=== PATIENT | female | born 1985 | race Caucasian/White ===

== ENCOUNTER 2023-02-16 09:55 | Outpatient (AMB) | payer OTHER, SELFPAY ==
[2023-02-16 10:14] VITALS: BP 122/64; PULSE 78; RESP 12; TEMP 36.3; O2SAT 99; BMI 27.8
--- NOTE | 2023-02-16 10:14 | MHC.PC.OV ---
Vital Signs 02/16/23 10:14 Height 4 ft 10 in Weight 133 lb 2 oz BMI 27.8 BP 122/64 Blood Pressure Location Rt brachial Position Sitting Respiration 12 Pulse 78 Pulse Source Pulse Oximeter Temp 97.3 F Temp Source Temporal Artery Scan Pulse Oximetry (%) 99 Oxygen Delivery Method Room Air Intake Visit Reasons: npv-requesting ph Intake Note: Patient states that she has been experiencing kidney pain and for her she states that that may be early signs of . Patient would also like a referral to OBGYN as well as full panel done for labs. Instrument Installer Required: No Accompanied by: Spouse Allergies No Known Allergies Allergy (Verified 02/16/23 10:20) Tobacco use date assessed: 02/16/23 Dental Screening Dental Screen Date: 02/16/23 Did you have a dental visit in the last 12 months?: Yes Did you have a dental problem in the last 6 months where you did not have access to dental care?: No Was dental information given to patient?: Patient has dentist HPI npv-requesting ph HPI Details New patient Prior PCP:?None Last office visit/CPE: 2 years Acute issue(s): Wanting to get - never before PMHx: Hx of Kidney Stones, Gastritis, Low Vitamin D SurgHx: Basketr removal of kidney stone FHx: Mom: HTN, HLD. Dad: HTN. SocHx: Nonsmoker. EtOH occasional 1-2 dr. No drugs. [facility] Medical History (Updated 02/16/23 @ 11:36 by Michael Solano) Kidney stones History of blood clots High cholesterol High blood pressure Surgical History (Updated 02/16/23 @ 10:25 by Florina Coats MA) No pertinent past surgical history Family History (Updated 02/16/23 @ 10:27 by Florina Caots MA) Mother High blood pressure High cholesterol Thyroid disorder Father High blood pressure Maternal Grandmother High blood pressure Paternal Grandfather Diabetes Social History Housing: House Patient Tobacco Use Status: Never used Tobacco e-Cigarette/Vaping Use: Never Used service: No Cognitive needs: No Hearing needs: No Vision needs: Yes Questionnaire PHQ-9 Over the last 2 weeks, how often have you been bothered by any of the following problems? 1. Little interest or pleasure in doing things: not at all 2. Feeling down, depressed, or hopeless: not at all 3. Trouble falling or staying asleep, or sleeping too much: not at all 4. Feeling tired or having little energy: several days 5. Poor appetite or overeating: not at all 6. Feeling bad about yourself - or that you are a failure or have let yourself or your family down: not at all 7. Trouble concentrating on things, such as reading the newspaper or watching television: not at all 8. Moving or speaking so slowly that other people could have noticed. Or the opposite - being so fidgety or restless that you have been moving around a lot more than usual: not at all 9. Thoughts that you would be better off or of hurting yourself in some way: not at all Total score: 1 Depression Screening Interpretation: Negative Source: Developed by Drs. Dwaine Eid, Clemencia Bravo, Jaycob Lockett and colleagues, with an educational serina from [employer]. Thrive Questionnaire Date Thrive assessed: 02/16/23 I am a: Patient What is your living situation today?: I have a steady place to live Within the past 12 months, did the food you bought not last and you didn't have the money to get more?: Never true Within the past 12 months, did you worry whether your food would run out before you got money to buy more?: Never true Do you have trouble paying for medicines?: Yes Do you have trouble getting transportation to medical appointments?: No Do you have trouble paying your heating and electricity bill?: Yes Do you have trouble taking care of your child, family member or friend?: No Do you have trouble with day-to-day activities such as bathing, preparing meals, shopping, managing finances, etc.?: No Are you currently unemployed and looking for a job?: Yes Are you interested in more education?: Yes Please select the resources that you would like help with: Paying for medicine, Utilities, Job search/training and Education Currently or been in a relationship where the following occur: no concerns reported AUDIT C Alcohol Use Questionnaire (AUDIT-C) 1. How often do you have a drink containing alcohol?: Monthly or less 2. How many drinks containing alcohol do you have on a typical day when you are drinking?: 1 or 2 3. How often do you have six or more drinks on one occasion?: Never Total Score: 1 STONE-7 AMB Questionnaire STONE-7 Date STONE - 7 assessed: 02/16/23 Feeling nervous, anxious, or on edge: 0 = Not at all Not being able to stop or control worryin = Not at all Worrying too much about different things: 0 = Not at all Trouble relaxin = Not at all Being so restless that it is hard to sit still: 0 = Not at all Becoming easily annoyed or irritable: 0 = Not at all Feeling afraid as if something awful might happen: 0 = Not at all Total STONE-7 score (0-4 normal; 5-9 mild; 10-14 moderate; 15-21 severe): 0 Source: Developed by Drs. Dwaine Eid, Clemencia Bravo, Jaycob Lockett and colleagues, with an educational serina from [employer]. Physical exam (Primary Care) Vital Signs: Last Vital Signs Temp 97.3 F 02/16/23 10:14 Pulse 78 02/16/23 10:14 Resp 12 02/16/23 10:14 BP 122/64 02/16/23 10:14 Pulse Ox 99 02/16/23 10:14 Oxygen Delivery Method Room Air 02/16/23 10:14 BMI result Body Mass Index 27.8 Tobacco/Smoking Status: Tobacco use Status Tobacco use date assessed 02/16/23 02/16/23 10:30 Patient Tobacco Use Status Never used Tobacco 02/16/23 10:16 e-Cigarette/Vaping Use Never Used 02/16/23 10:30 PHQ-9: PHQ-9 Score PHQ-9: Total score 1 02/16/23 11:19 Depression Screening Interpretation: Negative Thrive Assessment: Date of Thrive Assessment Date Thrive assessed 02/16/23 02/16/23 10:30 Currently or been in a relationship where the following occur: no concerns reported Assessment and Plan Assessment & Plan (1) History of kidney stones: Code(s): Z87.442 - Personal history of urinary calculi Plan: Check urine dip and will send for urinalysis Hydrate well Will follow-up (2) Family planning: Code(s): Z30.09 - Encounter for other general counseling and advice on contraception Plan: Start vitamin as patient is trying to get . Check urine hCG today She notes some abnormalities with hormones in the past so checking labs Referred to OBGYN (3) Gastritis: Code(s): K29.70 - Gastritis, unspecified, without bleeding Plan: Avoid trigger foods which were reviewed with patient Avoid eating to close to bedtime or overeating Will follow-up (4) Strabismus: Code(s): H50.9 - Unspecified strabismus Plan: Right eye weakness. Patient denies vision loss Wears glasses Stable (5) History of blood clots: Code(s): Z86.718 - Personal history of other venous thrombosis and embolism Plan: Mildly poor historian. Patient recounts having an technologist development in [facility] state that she has a blood clot in her neck. She says this testing was done for pain in her neck. No treatment was provided such as anticoagulation. Unclear history. Check D-dimer today. If positive would refer to ED and or get ultrasound. I expect testing will likely be negative as she has no carotid bruit or dizziness Does have some neck pain and would check x-ray or other imaging. (6) Laboratory exam ordered as part of routine general medical examination: Code(s): Z00.00 - Encounter for general adult medical examination without abnormal findings Plan: Check labs Orders: Orders AMB HCG Urine Test Today Z30. - Encounter for other general counseling and advice on contraception Urine Dipstick Today M54.9 - Dorsalgia, unspecified Complete Blood Count Auto Diff Today Z00.00 - Encounter for general adult medical examination without abnormal findings Lipid Panel Today Z00.00 - Encounter for general adult medical examination without abnormal findings UA and rflx microscopic Today Z00.00 - Encounter for general adult medical examination without abnormal findings Follicle Stimulating Hormone Today Z30.09 - Encounter for other general counseling and advice on contraception Progesterone Today Z30.09 - Encounter for other general counseling and advice on contraception Comprehensive [place]. Panel Fast Today Z00.00 - Encounter for general adult medical examination without abnormal findings Microalbumin, Random (w Creat) Today I10 - Essential (primary) hypertension TSH reflex Free T4 Today Z00.00 - Encounter for general adult medical examination without abnormal findings Vitamin D 25-OH Total Today E55.9 - Vitamin D deficiency, unspecified D Dimer High Sensitivity Today Z86.718 - Personal history of other venous thrombosis and embolism Lutenizing Hormone Today Z30 - Encounter for other general counseling and advice on contraception Estrogen Today Z - Encounter for other general counseling and advice on contraception Referrals SENIOR ADMINISTRATOR SUPPORT Referral Z. - Encounter for other general counseling and advice on contraception Medications: New PNV #[id number] 30 mg iron-10 mg iron-1 mg 1 cap PO DAILY 90 caps 3RF 90 days Coding Level of Care Code New Pt Level 4 (96691) Diagnoses History of kidney stones Z87.442 Family planning Z30. Gastritis K29.70 Strabismus H50.9 History of blood clots Z86.718 Laboratory exam ordered as part of routine general medical examination Z00.00
== END 2023-02-16 11:56 | disposition home or self-care (01) ==
PROVIDERS: PCP Family Medicine; Visit Provider Family Medicine
DX: K29.70 Gastritis, unspecified, without bleeding (principal); Z87.442 Personal history of urinary calculi; Z32.02 Encounter for pregnancy test, result negative; Z86.718 Personal history of other venous thrombosis and embolism; Z30.09 Encounter for other general counseling and advice on contraception; H50.9 Unspecified strabismus
CPT/HCPCS: 81025; 99204

== ENCOUNTER 2023-02-16 12:15 | Outpatient (REF) | payer OTHER, SELFPAY ==
[2023-02-16 14:51] LABS: Appearance Urine Clear; Color Urine Dark Yellow; Glucose Urine UA Negative (Negative); Leukocyte Esterase Urine Trace (Negative); Nitrite Urine Negative (Negative); Specific Gravity - Urine 1.015 (1.005-1.025); UMIC TRIGGER UA YES; Urine Blood Negative (Negative); Urine Ketones Negative (Negative); Urine Protein Negative (Neg-Trace)
[2023-02-16 14:54] LABS: Bacteria Urine Trace (None Seen); Hyaline Casts Urine 0-2 /LPF (0-2); RBC Urine 0-2 /HPF (0-2); Squamous Epithelial Cell Urine 0-2 /HPF (0-2); WBC Urine 0-5 /HPF (0-5)
== END 2023-02-16 12:16 | disposition home or self-care (01) ==
LOC: HO.LAB 12:15
PROVIDERS: Visit Provider Family Medicine
DX: M54.9 Dorsalgia, unspecified (principal)
CPT/HCPCS: 81001

== ENCOUNTER 2023-03-15 10:09 | Outpatient (REF) | payer OTHER, SELFPAY ==
[2023-03-16 23:33] LABS: Follicle Stimulating Hormone 1.9 mIU/mL; Lutenizing Hormone 1.3 mIU/mL
[2023-03-19 22:24] LABS: Estrogen 252 pg/mL
[2023-03-22 19:48] LABS: Progesterone 21.2 ng/mL
== END 2023-03-15 10:10 | disposition home or self-care (01) ==
LOC: HO.WFDLDS 10:09
PROVIDERS: Visit Provider Family Medicine
DX: Z00.00 Encounter for general adult medical examination without abnormal findings (principal); Z30.09 Encounter for other general counseling and advice on contraception; Z86.718 Personal history of other venous thrombosis and embolism; E55.9 Vitamin D deficiency, unspecified; I10 Essential (primary) hypertension
CPT/HCPCS: 36415; 80053; 80061; 81003; 82043; 82306; 82570; 82672; 83001; 83002; 84144; 84443; 85025; 85379

== ENCOUNTER 2023-03-18 13:53 | Outpatient (AMB) | payer OTHER, SELFPAY ==
[2023-03-18 14:02] VITALS: BP 126/82; PULSE 80; O2SAT 99; BMI 27.9
--- NOTE | 2023-03-18 14:02 | A.OFFPC_ITS ---
Vital Signs 03/18/23 14:02 Height 4 ft 10 in Weight 133 lb 6 oz BMI 27.9 BP 126/82 Blood Pressure Location Lt brachial Position Sitting Pulse 80 Pulse Source Pulse Oximeter Pulse Oximetry (%) 99 Oxygen Delivery Method Room Air Intake Visit Reasons: CPE with f/u labs and health maint. Intake Note: Patient is here for her physical today and is compalining of kidney pain, and pain in her groin area for about a week. Accompanied by: Spouse Allergies No Known Allergies Allergy (Verified 03/18/23 14:06) Tobacco use date assessed: 03/18/23 HPI CPE with f/u labs and health maint. HPI Details 37 y/o female presents for a CPE with f/ u labs and health maintenance. Labs were drawn 03/15/23. Reviewed labs with pt. TC 296. LDL 217. Triglycerides 86. HDL 62. Pt reports some dizziness since last office visit. She denies dizziness when turning her head or standing up too quickly. She notes dizziness when she walks sometimes. She denies any chest pain or shortness of breath. [facility] Medical History (Updated 03/18/23 @ 15:07 by Michael Solano) Kidney stones History of blood clots High cholesterol High blood pressure Surgical History (Updated 02/16/23 @ 10:25 by Florina Coats MA) No pertinent past surgical history Family History (Updated 02/16/23 @ 10:27 by Florina Coats MA) Mother High blood pressure High cholesterol Thyroid disorder Father High blood pressure Maternal Grandmother High blood pressure Paternal Grandfather Diabetes Social History Housing: House Patient Tobacco Use Status: Never used Tobacco e-Cigarette/Vaping Use: Never Used service: No Current occupational status: other Cognitive needs: No Hearing needs: No Vision needs: Yes Questionnaire Thrive Questionnaire Date Thrive assessed: 02/16/23 STONE-7 AMB Questionnaire STONE-7 Date STONE - 7 assessed: 02/16/23 Source: Developed by Drs. Dwaine Eid, Clemencia Bravo, Jaycob Lockett and colleagues, with an educational serina from [employer]. Review of Systems Const Denies chills, Denies fatigue, Denies fever(s), Denies headache(s) and Denies weakness Eyes Denies change in vision ENT Denies dizziness, Denies headache(s), Denies hearing loss, Denies nasal congestion, Denies sinus pain, Denies sinus pressure and Denies sore throat Card Denies chest pain, Denies lightheadedness, Denies dyspnea and Denies other (palpitations) Resp Denies cough, Denies dyspnea and Denies wheezing GI Denies abdominal pain, Denies melena, Denies hematochezia, Denies change in bowel habits, Denies dyspepsia and Denies nausea Denies hematuria and Denies dysuria Musc Denies abnormal gait, Denies myalgias, Denies arthralgias, Denies numbness and Denies tingling Skin/Breast Denies rash, Denies unusual bruising and Denies wounds Neuro Denies abnormal gait, Denies dizziness, Denies headache(s), Denies memory loss, Denies numbness, Denies Sensory deficit (Neuro), Denies tingling and Denies weakness Psych Denies anxiety, Denies depression and Denies memory loss Endo Denies cold intolerance, Denies fatigue, Denies heat intolerance, Denies polydipsia and Denies polyuria Chidi/Lymph Denies easy bleeding and Denies easy bruising Aller/Immun Denies wheezing Physical exam (Primary Care) Vital Signs: Last Vital Signs Pulse 80 03/18/23 14:02 BP 126/82 03/18/23 14:02 Pulse Ox 99 03/18/23 14:02 Oxygen Delivery Method Room Air 03/18/23 14:02 BMI result Body Mass Index 27.9 Tobacco/Smoking Status: Tobacco use Status Tobacco use date assessed 03/18/23 03/18/23 14:08 Patient Tobacco Use Status Never used Tobacco 03/18/23 14:08 e-Cigarette/Vaping Use Never Used 03/18/23 14:08 Thrive Assessment: Date of Thrive Assessment Date Thrive assessed 02/16/23 03/18/23 14:08 Const General: no acute distress, well developed, alert and awake Nutritional Appearance: well nourished Orientation/consciousness: patient oriented x3 HENMT Head: Yes normocephalic and Yes atraumatic Ears: hearing grossly normal bilaterally and TM's normal bilaterally General nose exam: Normal external nose present and Normal nares present Mouth: Normal oral and palatal mucosa present and moist mucous membranes Teeth and gingiva: dentition normal Throat: Yes posterior oropharynx normal Eyes General: appearance normal, both eyes and all related structures Pupils: Equal, round and reactive pupils present and Pupil accommodation reflex normal EOM: EOMs intact bilaterally Neck Neck: Yes normal visual inspection, Yes no lymphadenopathy and Yes trachea midline Thyroid: Thyroid normal Carotids: no bruits Lymphatic: no lymphadenopathy noted Chest Chest palpation & inspection: normal inspection of the chest Resp Effort & Inspection: normal respiratory effort Auscultation: clear to auscultation bilaterally Cardio Rate: regular rate Rhythm: regular rhythm Heart sounds: S1 normal heart sound present, S2 normal heart sound present, no gallops, no murmurs and no rubs Bruits: no abdominal aortic bruits and no carotid bruits GI Palpation (GI): No Abdominal aortic bruit present, Soft to palpation, nontender, No hepatosplenomegaly present and No Rebound tenderness present Auscultation: normal bowel sounds General: Yes no CVA tenderness Back/Spine/Pelvis Back: no CVA tenderness Cervical Spine: cervical ROM normal and No Cervical spine tenderness Thoracic/Lumbar Spine: thoraco-lumbar ROM normal, No pain with thoraco-lumbar ROM, No thoracic spinal tenderness and No lumbar spinal tenderness Skin Lesions: no lesions Rashes: no rashes Trauma: no lacerations or abrasions Wounds: no wounds Nails: normal Neuro General: patient oriented x3 Cranial nerves: Yes Equal, round and reactive pupils present Cognition (Neuro): normal cognition Gait exam (Neuro): Normal gait present Motor exam (neuro): 5/5 motor strength present throughout Sensory Exam: No Sensory deficit (Neuro) Deep tendon reflexes (DTR's): Right patellar reflex intensity grade: 2+ and Left patellar reflex intensity grade: 2+ Extrem General: Yes normal to inspection and No edema Psych Appearance: grossly normal Affect: normal affect Attitude: cooperative Thought process: Normal thought process present Assessment and Plan Assessment & Plan (1) Adult general medical exam: Code(s): Z00.00 - Encounter for general adult medical examination without abnormal findings Plan: 37-year-old?female?presents?for?complete?physical?exam (2) Hypercholesterolemia: Code(s): E78.00 - Pure hypercholesterolemia, unspecified Plan: Significantly?high?LDL.??Also?has?good?HDL?though?not?likely?fully?protective. Patient?is?trying?to?get? so?would?like?to?avoid?using?statin?medication Will?refer?to?Cardiology?to?discuss?risk?as?she?also?notes?history?of?blood?clot s?though?this?is?not?well?established; patient?is?s omewhat?a?poor?historian?on?this?point. Referred?to?cardiology Encouraged?patient?to?work?on?a?diet?low?in?saturated?fats?and?cholesterol?and?t o?exercise?regularly. Will?recheck?in?3?months (3) History of blood clots: Code(s): Z86.718 - Personal history of other venous thrombosis and embolism Plan: Patient?says?she?was?told?she?has?a?blood?clot?in?country?of?origin?but?she?is?u nclear?on?this?point. She?had?been?concerned?about?current?blood?clots?and?D-dimer?was?negative. Reassured?patient?regarding?any?current?thromboses (4) Screening for cervical cancer: Code(s): Z12.4 - Encounter for screening for malignant neoplasm of cervix Plan: She?can?follow-up?with?her?OBGYN (5) Family planning: Code(s): Z30.09 - Encounter for other general counseling and advice on contraception Plan: Had?referred?her?to?OBGYN?for?family?planning?as?she?is?trying?to?get?. Gave?her?phone?number?for?OBGYN?and?she?is?already?referred (6) Dizziness: Code(s): R42 - Dizziness and giddiness Plan: Dizziness?with?head?movement. Likely?mild?vertigo?times?2?episodes No?chest?pain,?shortness?of?breath, ,?nausea?or?diaphoresis. Hydrate?well If?symptoms?recur,?would?refer?her?to?vestibular?rehab Orders: Orders Lipid Panel Today E78.00 - Pure hypercholesterolemia, unspecified, Z00.00 - Encounter for general adult medical examination without abnormal findings Comprehensive [place]. Panel Fast Today E78.00 - Pure hypercholesterolemia, unspecified, Z00.00 - Encounter for general adult medical examination without abnormal findings Referrals Cardiology Referral E78.00 - Pure hypercholesterolemia, unspecified, Z30.09 - Encounter for other general counseling and advice on contraception, Z86.718 - Personal history of other venous thrombosis and embolism Coding Level of Care Code Est Pt Level 3 (87311) Est Pt Prev Care 18-39y(15499) Diagnoses Adult general medical exam Z00.00 Hypercholesterolemia E78.00 History of blood clots Z86.718 Screening for cervical cancer Z12.4 Family planning Z30.09 Dizziness R42
== END 2023-03-18 15:14 | disposition home or self-care (01) ==
PROVIDERS: PCP Family Medicine; Visit Provider Family Medicine
DX: Z00.00 Encounter for general adult medical examination without abnormal findings (principal); E78.00 Pure hypercholesterolemia, unspecified; Z86.718 Personal history of other venous thrombosis and embolism; R42 Dizziness and giddiness
CPT/HCPCS: 99395

== ENCOUNTER 2023-07-05 11:26 | Outpatient (AMB) | payer OTHER, SELFPAY ==
--- NOTE | 2023-07-05 11:31 | A.OFFPC_ITS ---
Vital Signs 07/05/23 11:32 Height 4 ft 10 in Weight 136 lb 4 oz BMI 28.5 BP 128/86 Blood Pressure Location Lt brachial Position Sitting Pulse 69 Pulse Source Pulse Oximeter Pulse Oximetry (%) 100 Oxygen Delivery Method Room Air Intake Visit Reasons: f/u hypercholesterolemia Intake Note: Patient is here with left knee pain for 2 months, last two weeks it got worse. Also right shoulder pain for years, on/off. Accompanied by: Spouse Allergies No Known Allergies Allergy (Verified 07/05/23 11:34) Tobacco use date assessed: 07/05/23 Dental Screening Dental Screen Date: 07/05/23 Did you have a dental visit in the last 12 months?: No Did you have a dental problem in the last 6 months where you did not have access to dental care?: No Was dental information given to patient?: Yes HPI f/u hypercholesterolemia HPI Details 38 y/o female presents to f/u hyperlipid [facility]. No recent labs to review. Pt has complaints of L knee pain x2 months which has gotten worse over the past two weeks. She does not recall any changes to her activities but notes it did worsen after skiing. She describes pain as a sharp pain while moving. She also reports R shoulder pain. [facility] Medical History Kidney stones History of blood clots High cholesterol High blood pressure Surgical History No pertinent past surgical history Family History Mother High blood pressure High cholesterol Thyroid disorder Father High blood pressure Maternal Grandmother High blood pressure Paternal Grandfather Diabetes Social History Housing: House Patient Tobacco Use Status: Never used Tobacco e-Cigarette/Vaping Use: Never Used service: No Current occupational status: other Cognitive needs: No Hearing needs: No Vision needs: Yes Questionnaire Thrive Questionnaire Date Thrive assessed: 02/16/23 STONE-7 AMB Questionnaire STONE-7 Date STONE - 7 assessed: 02/16/23 Source: Developed by Drs. Dwaine Eid, Clemencia Bravo, Jaycob Lockett and colleagues, with an educational serina from [employer]. Review of Systems Musc Details: L knee pain R shoulder pain Physical exam (Primary Care) Vital Signs: Last Vital Signs Pulse 69 07/05/23 11:32 BP 128/86 07/05/23 11:32 Pulse Ox 100 07/05/23 11:32 Oxygen Delivery Method Room Air 07/05/23 11:32 BMI result Body Mass Index 28.5 Tobacco/Smoking Status: Tobacco use Status Tobacco use date assessed 07/05/23 07/05/23 11:37 Patient Tobacco Use Status Never used Tobacco 07/05/23 11:37 e-Cigarette/Vaping Use Never Used 07/05/23 11:37 Thrive Assessment: Date of Thrive Assessment Date Thrive assessed 02/16/23 07/05/23 11:37 Assessment and Plan Assessment & Plan (1) Hypercholesterolemia: Code(s): E78.00 - Pure hypercholesterolemia, unspecified Plan: Patient?will?get?her?labs?drawn?fasting?and?we?can?follow-up?b y?telemedicine?in?3-4?weeks. She?also?has?an?appointment?with?cardiology (2) Left knee pain: Code(s): M25.562 - Pain in left knee Plan: Left?knee?pain?which?has?worsened?after?skiing. Pain?is?at?insertion?points?medial?femoral?tendon?and?proximal?tibia Likely?muscle/tendon?strain. Should?improve?with?physical?therapy-ordered Can?also?use?ice/heat?and?ibuprofen?or?topical?creams. (3) Right shoulder pain: Code(s): M25.511 - Pain in right shoulder Plan: Likely?muscular?strain Should?benefit?from?physical?therapy-ordered (4) care: Code(s): Z34.90 - Encounter for supervision of normal , unspecified, unspecified trimester Plan: Patient?had?requested ?OBGYN?referral?as?she?is?trying?to?get??and?would?also?like?screening?f or?cervical?cancer?and?general?clinical research administrator?care. Referred I?have?given?her??vitamin?and?she?can?begin?this?now. Orders: Orders PT Evaluation and Treatment Today M25.511 - Pain in right shoulder, M25.562 - Pain in left knee Coding Level of Care Code Est Pt Level 4 (25862) Diagnoses Hypercholesterolemia E78.00 Left knee pain M25.562 Right shoulder pain M25.511 care Z34.90
[2023-07-05 11:32] VITALS: BP 128/86; PULSE 69; O2SAT 100; BMI 28.5
== END 2023-07-05 13:30 | disposition home or self-care (01) ==
PROVIDERS: PCP Family Medicine; Visit Provider Family Medicine
DX: E78.00 Pure hypercholesterolemia, unspecified (principal); M25.562 Pain in left knee; M25.511 Pain in right shoulder; Z34.90 Encounter for supervision of normal pregnancy, unspecified, unspecified trimester
CPT/HCPCS: 99214

== ENCOUNTER 2023-08-08 09:33 | Outpatient (REF) | payer OTHER, SELFPAY ==
[2023-08-08 12:00] LABS: Alanine Aminotransferase 15 U/L (0-31); Albumin Level 4.3 g/dL (3.5-5.0); Alkaline Phosphatase 55 U/L (39-117); Anion Gap 8 (12-20); Aspartate Amino Transferase 15 U/L (5-31); Bilirubin Total 0.9 mg/dL (0.0-1.0); Blood Urea Nitrogen 14 mg/dL (9-16); Calcium 9.2 mg/dL (8.4-10.2); Carbon Dioxide 27 mmol/L (22-29); Chloride 105 mmol/L (96-108); Cholesterol 281 mg/dL (<200); Estimated Glomerular Filt Rate > 60; Glucose Fasting 90 mg/dL (60-99); HDL Cholesterol 52 mg/dL (>40); LDL Cholesterol Calculated 213 mg/dL (<100); Potassium 4.2 mmol/L (3.3-5.1); Sodium 136 mmol/L (135-145); Total Protein 6.9 g/dL (6.5-8.0); Triglycerides 83 mg/dL (<150)
== END 2023-08-08 09:34 | disposition home or self-care (01) ==
LOC: HO.WFDLDS 09:33
PROVIDERS: Visit Provider Family Medicine
DX: Z00.00 Encounter for general adult medical examination without abnormal findings (principal); E78.00 Pure hypercholesterolemia, unspecified
CPT/HCPCS: 36415; 80053; 80061

== ENCOUNTER 2023-08-09 09:29 | Outpatient (AMB) | payer OTHER, SELFPAY ==
--- NOTE | 2023-08-09 09:41 | A.OFFPC_ITS ---
Vital Signs 08/09/23 09:43 Height 4 ft 10 in Weight 134 lb 2 oz BMI 28.0 BP 118/62 Blood Pressure Location Lt brachial Position Sitting Pulse 75 Pulse Source Pulse Oximeter Pulse Oximetry (%) 96 Oxygen Delivery Method Room Air Intake Visit Reasons: f/u hypercholesterolemia and knee/shoulder pain Intake Note: Patient is here for follow up on cholesterol today, and knee and shoulder pain and physical therapy. Accompanied by: Spouse Allergies No Known Allergies Allergy (Verified 08/09/23 09:46) Tobacco use date assessed: 08/09/23 HPI f/u hypercholesterolemia and knee/shoulder pain HPI Details 38 y/o female presents to f/u hyperchole sterolemia and knee/shoulder pain. Had significantly elevated lipids. We have held off on statin medications as she is trying to get . Labs were drawn 08/08/23. Reviewed labs with pt. TC 281. LDL 213. HDL 52. Pt notes she has not been doing physical therapy for very long with her knees/shoulders but notes it has been improving. FORMERLY [facility] Medical History Kidney stones History of blood clots High cholesterol High blood pressure Surgical History No pertinent past surgical history Family History Mother High blood pressure High cholesterol Thyroid disorder Father High blood pressure Maternal Grandmother High blood pressure Paternal Grandfather Diabetes Social History Housing: House Patient Tobacco Use Status: Never used Tobacco e-Cigarette/Vaping Use: Never Used service: No Current occupational status: other Cognitive needs: No Hearing needs: No Vision needs: Yes Questionnaire PHQ-9 Over the last 2 weeks, how often have you been bothered by any of the following problems? 1. Little interest or pleasure in doing things: not at all 2. Feeling down, depressed, or hopeless: not at all 3. Trouble falling or staying asleep, or sleeping too much: not at all 4. Feeling tired or having little energy: not at all 5. Poor appetite or overeating: not at all 6. Feeling bad about yourself - or that you are a failure or have let yourself or your family down: not at all 7. Trouble concentrating on things, such as reading the newspaper or watching television: not at all 8. Moving or speaking so slowly that other people could have noticed. Or the opposite - being so fidgety or restless that you have been moving around a lot more than usual: not at all 9. Thoughts that you would be better off or of hurting yourself in some way: not at all Total score: 0 Depression Screening Interpretation: Negative Depression Screening Done: Yes Source: Developed by Drs. Dwaine Eid, Clemencia Bravo, Jaycob Lockett and colleagues, with an educational serina from [employer]. Thrive Questionnaire Date Thrive assessed: 08/09/23 I am a: Patient What is your living situation today?: I have a steady place to live Within the past 12 months, did the food you bought not last and you didn't have the money to get more?: Never true Within the past 12 months, did you worry whether your food would run out before you got money to buy more?: Never true Do you have trouble paying for medicines?: No Do you have trouble getting transportation to medical appointments?: No Do you have trouble paying your heating and electricity bill?: No Do you have trouble taking care of your child, family member or friend?: No Do you have trouble with day-to-day activities such as bathing, preparing meals, shopping, managing finances, etc.?: No Are you currently unemployed and looking for a job?: Yes Are you interested in more education?: No THRIVE Score: 0 AUDIT C Alcohol Use Questionnaire (AUDIT-C) 1. How often do you have a drink containing alcohol?: Monthly or less 2. How many drinks containing alcohol do you have on a typical day when you are drinking?: 1 or 2 3. How often do you have six or more drinks on one occasion?: Never Total Score: 1 STONE-7 AMB Questionnaire STONE-7 Date STONE - 7 assessed: 08/09/23 Feeling nervous, anxious, or on edge: 0 = Not at all Not being able to stop or control worryin = Not at all Worrying too much about different things: 0 = Not at all Trouble relaxin = Not at all Being so restless that it is hard to sit still: 0 = Not at all Becoming easily annoyed or irritable: 0 = Not at all Feeling afraid as if something awful might happen: 0 = Not at all Total STONE-7 score (0-4 normal; 5-9 mild; 10-14 moderate; 15-21 severe): 0 Source: Developed by Drs. Dwaine Eid, Clemencia Bravo, Jaycob Lockett and colleagues, with an educational serina from [employer]. Physical exam (Primary Care) Vital Signs: Last Vital Signs Pulse 75 08/09/23 09:43 BP 118/62 08/09/23 09:43 Pulse Ox 96 08/09/23 09:43 Oxygen Delivery Method Room Air 08/09/23 09:43 BMI result Body Mass Index 28.0 Tobacco/Smoking Status: Tobacco use Status Tobacco use date assessed 08/09/23 08/09/23 09:48 Patient Tobacco Use Status Never used Tobacco 08/09/23 09:42 e-Cigarette/Vaping Use Never Used 08/09/23 09:42 PHQ-9: PHQ-9 Score PHQ-9: Total score 0 08/09/23 10:01 Depression Screening Interpretation: Negative Thrive Assessment: Date of Thrive Assessment Date Thrive assessed 08/09/23 08/09/23 09:53 Assessment and Plan Assessment & Plan (1) Hypercholesterolemia: Code(s): E78.00 - Pure hypercholesterolemia, unspecified Plan: Lipids?still?very?high. She?and?her??are?trying?to?get??however.??Avoiding?medications?fo r?cholesterol?at?this?time.??She?can?di scuss?this?with?account resolution specialist?to?weigh?risks/benefits. We?discussed?that?after??she?should?be?on?a?statin?medication. Meantime?she?will?work?at?dietary?changes,?weight?control?and?exercise. Will?recheck?in?a?few?months. (2) Left knee pain: Code(s): M25.562 - Pain in left knee Plan: Left?kn ee?and?right?shoulder?are?improving.??She?is?only?just?started?physical?therapy. Continue?physical?therapy?and?she?will?let?me?know?if?improvement?Stalls. (3) Right shoulder pain: Code(s): M25.511 - Pain in right shoulder Plan: As?above Coding Level of Care Code Est Pt Level 4 (45609) Diagnoses Hypercholesterolemia E78.00 Left knee pain M25.562 Right shoulder pain M25.511
[2023-08-09 09:43] VITALS: BP 118/62; PULSE 75; O2SAT 96; BMI 28.0
== END 2023-08-09 10:20 | disposition home or self-care (01) ==
PROVIDERS: PCP Family Medicine; Visit Provider Family Medicine
DX: E78.00 Pure hypercholesterolemia, unspecified (principal); M25.562 Pain in left knee; M25.511 Pain in right shoulder
CPT/HCPCS: 99214

== ENCOUNTER 2023-08-15 14:00 | Outpatient (AMB) | payer OTHER, SELFPAY ==
[2023-08-15 14:02] VITALS: BP 140/76; PULSE 73; BMI 28.6
--- NOTE | 2023-08-15 14:02 | A.OFFVIS_ITS ---
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 She is a 38-year-old [place] woman with past history of hyperlipidemia for long time. Patient has no family history of premature coronary artery disease. She remains very active and denies any symptoms with exertion. Denies any exertional chest pain or shortness of breath. She has no other health issues. However her and her are planning to pursue further treatment for becoming parents including pursuing in vitro fertilization. [facility] Medical History Kidney stones History of blood clots High cholesterol High blood pressure Surgical History No pertinent past surgical history Family History Mother High blood pressure High cholesterol Thyroid disorder Father High blood pressure Maternal Grandmother High blood pressure Paternal Grandfather Diabetes Social History Housing: House Patient Tobacco Use Status: Never used Tobacco e-Cigarette/Vaping Use: Never Used service: No Current occupational status: other Cognitive needs: No Hearing needs: No Vision needs: Yes Review of Systems Const Denies chills, Denies daytime sleepiness, Denies fatigue, Denies fever(s), Denies frequent falls, Denies poor appetite, Denies snoring, Denies stops breathing during sleep, Denies weakness, Denies weight gain and Denies weight loss Eyes Denies loss of vision ENT Denies dizziness and Denies hearing loss Card Denies chest pain, Denies claudication, Denies leg edema, Denies lightheadedness, Denies palpitations, Denies dyspnea, Denies dyspnea on exertion and Denies orthopnea Resp Denies cough, Denies excessive phlegm production, Denies dyspnea, Denies dyspnea on exertion, Denies snoring and Denies wheezing GI Denies abdominal pain, Denies hematochezia, Denies change in bowel habits, Denies nausea and Denies vomiting Denies urinary frequency and Denies dysuria Musc Denies arthralgias, Denies muscle weakness, Denies numbness and Denies other (frequent falls) Skin/Breast Denies nail changes and Denies rash Neuro Denies Abnormal speech present, Denies dizziness, Denies frequent falls, Denies loss of vision, Denies memory loss, Denies numbness and Denies weakness Psych Denies depression and Denies memory loss Endo Denies fatigue and Denies palpitations Chidi/Lymph Reports easy bruising and Reports other (anemia) Aller/Immun Denies wheezing Physical Exam Vital Signs: Last Vital Signs Pulse 73 08/15/23 14:02 BP 140/76 H 08/15/23 14:02 BMI result Body Mass Index 28.6 Const General: cooperative, comfortable, no acute distress, alert, awake and Physically active Nutritional Appearance: overweight Orientation/consciousness: patient oriented x3 Limitations: no limitations HEENT Head: Yes normocephalic and Yes atraumatic Neck Neck: Yes trachea midline, Yes supple and Yes no JVD Carotids: no bruits Resp Effort & Inspection: normal respiratory effort Auscultation: clear to auscultation bilaterally Cardio Jugular venous distension: no JVD Palpation: normal PMI Rate: regular rate Rhythm: regular rhythm Heart sounds: S1 normal heart sound present, S2 normal heart sound present, no click, no gallops, no murmurs and no rubs GI Auscultation: normal bowel sounds Skin General skin exam: no rashes or lesions noted Neuro General: patient oriented x3 and no focal motor deficits Speech: No Abnormal speech present Extrem General: Yes no clubbing, cyanosis or edema Office Procedures EKG Details: EKG shows normal sinus rhythm with nonspecific ST changes [id number], Complete Assessment & Plan Assessment & Plan (1) Hypercholesterolemia: Code(s): E78.00 - Pure hypercholesterolemia, unspecified Plan: Significant hyperlipidemia with markedly elevated LDL cholesterol consistent with heterozygous familial hypercholesterolemia. Patient has no current symptoms. No further workup is indicated. As per ACC/aha guidelines for management of hyperlipidemia she is a candidate for primary prevention treatment for hyperlipidemia with a statin therapy. Although at current time she is planning to pursue actively and this will contraindicate treatment with a statin therapy at this point time. Potential symptoms associated with atherosclerosis was discussed with her. This point time no specific therapy is recommended till she finishes her try for . Discussed with her. She understands and agrees. Follow up in the clinic if need be. She will follow-up with your office. Thank you for allowing me to partake in the care Coding Level of Care Code New Pt Level 3 (05322) Diagnoses Hypercholesterolemia E78.00 CPT Codes EKG - CPT: 31397-[id number], Complete ([id number])
== END 2023-08-15 14:25 | disposition home or self-care (01) ==
PROVIDERS: PCP Family Medicine; Visit Provider Internal Medicine Cardiovascular Disease
DX: E78.00 Pure hypercholesterolemia, unspecified (principal)
CPT/HCPCS: 93010; 99203

== ENCOUNTER → 2023-08-15 14:00 | Outpatient (BNVA) | payer OTHER, SELFPAY | PROVIDERS: PCP Family Medicine; Visit Provider Internal Medicine Cardiovascular Disease | DX: E78.00 Pure hypercholesterolemia, unspecified (principal); R94.31 Abnormal electrocardiogram [ECG] [EKG] | CPT/HCPCS: 93005; 99202 ==

== ENCOUNTER 2023-08-26 10:00 | Outpatient (RCR) | payer OTHER, SELFPAY ==
--- NOTE | 2023-08-03 11:47 | MHC.PT.PR ---
[facility] [place] [facility] [place] [facility] [place] Office [address] [place] [address] Dr Vic Olmos [address] [phone] F: [phone] F: [phone] F: [phone] F: [phone] Physical Therapy Progress Note Diagnosis: L KNEE PAIN Date of Surgery: NA Date of Evaluation: 08/03/23 Treatments to Date: 1 Cancellations to Date: No Shows to Date: Subjective: Pt REPORTS FALL ON THE ICE WITH VALGUS TYPE MOVEMENT L KNEE ABOUT 1.5 MONTHS AGO. GETTING BETTER Pain Score and Location: 8 L KNEE Objective Measures: PT EVAL Assessment: Pt IS 38 YO F REFERRED TO PT FROM DR RODRIGUEZ WITH L KNEE PAIN. Pt REPORTS A FALL ABOUT 1.5 MONTHS AGO (VALGUS TYPE STRETCH TO L KNEE EXPLAINED). PRESENTS TO PT WITH GOOD ROM AND STRENGTH L LE WITH TTP JT LINE/PES AREA AND SOME DECREASED BAL/PROP ON L LE. REPORTS PAIN WITH WT BEARING AND EXERCISE. SHOULD BENEFIT FROM PT FOR KT/ST WORK AND HOME PROG TO ADDRESS THESE ISSUES PT Plan: Frequency and Duration: The patient will be seen 1X/WK X 4 WKS Treatment Plan: Therapeutic Exercise Dynamic Therapeutic Activities Neuromuscular Re-ed Manual Therapies Taping Gait Home Exercise Program Patient Education Hot or Cold Pack Reviewed/ Agreed with Student Documentation: Therapist: Thank you once again for your referral.
--- NOTE | 2023-10-12 15:00 | MHC.PT.DC ---
[facility] [place] Office [place] Office [place] Office [address] Vic Olmos [address] [phone] F: [phone] F: [phone] F: [phone] F: [phone] Physical Therapy Discharge Report Diagnosis: L KNEE PAIN Date of Surgery: NA Date of Evaluation: 08/03/23 Date of Discharge: 10/12/23 Treatments to Date: 5 Cancellations to Date: No Shows to Date: Discharge Status: Improved Function Independent with HEP Patient Elected to Stop Discharge Summary: PER ASSESSMENT PER ISHAN BRICENO PT,DPT AT LAST SESSION ON 08/26/23; 'Pt progressed to CKC with good ability, AAROM knee flexion 128 degrees. Pt encouraged to continue strengthening program to tolerance several times weekly. Pt states knee is no longer buckling and feels good with stairs. Educated re: avoidance of shear forces in her knee.' WITH PLAN 'DC to I HEP, pt to set up appt for shoulder' [ End ] Electronically signed by: GERMANIA GOOD PT Please sign and return to therapist. Thank you for your referral.
== END 2023-10-12 15:01 | disposition home or self-care (01) ==
LOC: HO.PTWFD 10:00
PROVIDERS: PCP Family Medicine; Visit Provider Family Medicine
DX: M25.511 Pain in right shoulder (principal); M25.562 Pain in left knee
CPT/HCPCS: 97110; 97140; 97161; 97535

== ENCOUNTER 2023-09-07 10:20 | Outpatient (REF) | payer OTHER, SELFPAY ==
[2023-09-07 17:37] LABS: CT PCR NOT DETECTED (Not Detect.); NG PCR NOT DETECTED (Not Detect.)
[2023-09-12 20:48] LABS: HPV mRNA E6/E7 rflx Not Detected (Not Detected)
== END 2023-09-07 10:21 | disposition home or self-care (01) ==
LOC: HO.LNP 10:20
PROVIDERS: PCP Family Medicine; Visit Provider Obstetrics & Gynecology
DX: Z01.419 Encounter for gynecological examination (general) (routine) without abnormal findings (principal); Z11.51 Encounter for screening for human papillomavirus (HPV); Z71.89 Other specified counseling
CPT/HCPCS: 0353U; 87624; 88142; 99385

== ENCOUNTER 2023-09-07 10:20 | Outpatient (AMB) | payer OTHER, SELFPAY ==
[2023-09-07 10:23] VITALS: BP 110/66; BMI 27.4
--- NOTE | 2023-09-07 10:23 | A.OFFVIS_ITS ---
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 No complaints. The patient is interested in conception [place]PV [place], the results showed dysplasia , no biopsy done and no reports available [facility] Medical History (Updated 09/07/23 @ 10:48 by Arturo Llamas MD) Kidney stones History of blood clots High cholesterol Surgical History No pertinent past surgical history Family History Mother High blood pressure High cholesterol Thyroid disorder Father High blood pressure Maternal Grandmother High blood pressure Paternal Grandfather Diabetes Social History Household Members: Spouse Housing: House Alcohol intake: current Alcohol intake frequency: holidays/special occasions only Patient Tobacco Use Status: Never used Tobacco e-Cigarette/Vaping Use: Never Used service: No Current occupational status: unemployed and other Sexual orientation: Straight/Heterosexual Gender identity: Female Cognitive needs: No Hearing needs: No Vision needs: Yes Female Reproductive History Menstrual control method: none Total pregnancies: 0 Review of Systems Const All systems reviewed & are unremarkable except as noted in HPI and below Card Reports as per HPI Resp Reports as per HPI GI Reports as per HPI and Reports no additional complaints Reports as per HPI Physical Exam Vital Signs: Last Vital Signs BP 110/66 09/07/23 10:23 BMI result Body Mass Index 27.4 Const General: cooperative, healthy appearing and comfortable Chest Chest palpation & inspection: normal inspection of the chest and normal palpation of entire chest wall Breast/axilla inspection: normal inspection of the breasts and normal inspection of the axillae Breast/axilla palpation: normal palpation of the breasts, normal palpation of the axillae and no axillary lymphadenopathy Resp Effort & Inspection: normal respiratory effort Auscultation: clear to auscultation bilaterally Percussion: percussion normal Cardio Palpation: normal PMI Rate: regular rate Rhythm: regular rhythm Heart sounds: no murmurs and no rubs Peripheral pulses: Peripheral pulses 2+ throughout GI Inspection: Yes normal to inspection Palpation (GI): Soft to palpation, nontender, no guarding, not rigid and No hepatosplenomegaly present Percussion: Yes normal to percussion Auscultation: normal bowel sounds Rectal Exam - Female: deferred General: Yes bladder normal to palpation External Female Exam: No lesion Speculum Exam - Vagina: normal appearance of the vagina, normal palpation, normal vaginal discharge and not erythematous Speculum Exam - Cervix: normal appearance of the cervix and normal palpation Bimanual exam- vagina & uterus: normal bimanual exam, normal palpation, uterine size normal, bladder normal to palpation, consistency normal and normal palpation Bimanual Exam- Adnexa, other: normal adnexae, no masses and no tenderness Assessment & Plan Assessment & Plan (1) Well woman exam: Comment: History of dysplasia Code(s): Z01.419 - Encounter for gynecological examination (general) (routine) without abnormal findings Plan: Cotesting done. Counseled the patient about the recommended dietary allowance of 1000 mg of Calcium & 600 IU of vitamin D. The patient was instructed to perform monthly self-breast exams and to schedule an annual exam in a year; All questions answered and the patient verbalized understanding. Instructed the patient to schedule annual exam in a year (2) consult: Code(s): Z71.89 - Other specified counseling Plan: Discussed with the patient her negative family history, lack of abnormal medical and pharmaceutical representative history and no environmentally exposure. Instructed the patient to eat a balanced diet exercise routinely, avoid raw fish, do not remove any cat's litter box to avoid toxoplasmosis, do not use alcohol and smoking or drugs start vitamin 1 tablet p.o. q.d. avoid nonsteroidal anti-inflammatory drugs or any medication use this. Other than Tylenol, who scheduled an annual exam for Pap smear since the patient has a history of cervical dysplasia , no reports available, will take GC and chlamydia order hepatitis B surface antigen, HIV, fasting blood sugar, hepatitis-C antibody, RPR, rubella it, varicella immunoglobulins, cystic fibrosis screen, recommended to the patient to call early after a positive test to document an intrauterine . Orders: Orders CT NG by PCR Today Z01.419 - Encounter for gynecological examination (general) (routine) without abnormal findings Complete Blood Count no Diff Today Z32. - Encounter for test, result positive, Z71.89 - Other specified counseling CF Carrier Screen Today Z32. - Encounter for test, result positive, Z71.89 - Other specified counseling Pap Smear Today Z01.419 - Encounter for gynecological examination (general) (routine) without abnormal findings Hepatitis B Surface Antigen Today Z32. - Encounter for test, result positive, Z71.89 - Other specified counseling Hepatitis C Antibody Today Z32. - Encounter for test, result positive, Z71.89 - Other specified counseling HIV Ab/Ag Today Z32. - Encounter for test, result positive, Z71.89 - Other specified counseling Screen Today Z32. - Encounter for test, result positive, Z71.89 - Other specified counseling Rubella IgG Antibody Today Z32. - Encounter for test, result positive, Z71.89 - Other specified counseling Syphilis Screen Today Z32. - Encounter for test, result positive, Z71.89 - Other specified counseling Varicella IgG Antibody Today Z32. - Encounter for test, result positive, Z71.89 - Other specified counseling Glucose Fasting Today Z71. - Other specified counseling Coding Level of Care Code New Pt Prev Care 18-39yr(44688 Diagnoses Well woman exam Z01.419 consult Z71.89
== END 2023-09-07 10:52 | disposition home or self-care (01) ==
PROVIDERS: PCP Family Medicine; Visit Provider Obstetrics & Gynecology
DX: Z01.419 Encounter for gynecological examination (general) (routine) without abnormal findings (principal); Z71.89 Other specified counseling
CPT/HCPCS: 99385

== ENCOUNTER 2023-09-13 07:35 | Outpatient (REF) | payer OTHER, SELFPAY ==
[2023-09-13 08:03] LABS: Hemoglobin 13.3 g/dl (12.0-16.0); Mean Corpuscular HGB Conc 33.3 g/dl (31.0-35.0); Mean Corpuscular Hemoglobin 30.2 pg (27.0-33.0); Mean Corpuscular Volume 90.9 fL (80.0-98.0); Mean Platelet Volume 10.5 fL (9.4-12.3); Platelet Count 209 X10*3/uL (160-400); Red Cell Distribution Width 12.1 % (11.0-16.0); White Blood Count 6.1 X10*3/uL (4.8-10.8)
[2023-09-13 08:27] LABS: Glucose Fasting 86 mg/dL (60-99)
[2023-09-13 09:10] LABS: HBsAGNum1 0.29 S/CO (0.00-0.99); HIV AB/AG Nonreactive (Nonreactive); HIV Num 1 0.05 S/CO (0.00-0.99); Hepatitis B Surface Antigen Negative (Negative); ~HepC Num1 0.05 S/CO (0.00-0.79); ~Hepatitis C Antibody Nonreactive (Nonreactive)
[2023-09-13 09:23] LABS: Syphilis Screen Nonreactive (Nonreactive)
[2023-09-23 14:43] LABS: CF Ethnicity NG; Cystic Fibrosis NEGATIVE (NEGATIVE)
== END 2023-09-13 07:36 | disposition home or self-care (01) ==
LOC: HO.LAB 07:35
PROVIDERS: PCP Family Medicine; Visit Provider Obstetrics & Gynecology
DX: Z32.01 Encounter for pregnancy test, result positive (principal); Z71.89 Other specified counseling
CPT/HCPCS: 36415; 81220; 82947; 85027; 86762; 86780; 86787; 86803; 86850; 86900; 87340; 87389

== ENCOUNTER 2023-09-26 10:00 | Outpatient (RCR) | payer OTHER, SELFPAY ==
--- NOTE | 2023-09-01 14:57 | MHC.PT.EP ---
[facility] [place] Office [place] Office [place] Office [address] Vic Olmos [address] [phone] F: [phone] F: [phone] F: [phone] F: [phone] Physical Therapy Plan of Care Date of Evaluation: 09/01/23 Date of Surgery: Diagnosis: Pain in R shoulder, pain in left knee, right shoulder pain, left knee pain signed by Dr. Estrella on 07/07/23 Assessment: Pt is a RHD 38 y/o female, referred to PT from her PCP Dr. Estrella for treatment of R shoulder pain. Pt just finished course of PT for her left knee pain with good outcomes. Pt expressing history of chronic shoulder pain, exacerbated by slip/fall on ice in May 2023. Pt has not had imaging for this issue. Upon examination, pt exhibits hypermobility and winged scapulae, poor posture, tightness/overuse dysfunction of R>L UT/teres. Pt exhibits weakness of scapular stabilizers and exhibits poor ability for weight-bearing/ carrying of objects in her dominant arm. Pt exhibits impaired AROM, decreased tolerance for dynamic movements and overall lack of home program. Pt exhibits good outcomes to achieve relief of these sx. Post eval she was initiated in written HEP consisting of: AAROM cane flexion x 5R x 20 sec hold within pain-free levels, isometric scapular retraction x 10R x 3 sec hold, and SL ER with towel roll x 10R. SHe was educated in the benefit of icing shoulder to ease sx. She verbalized relief of sx intensity post eval/HEP/ice trial in the office. PMH significant for history of blood clot, high cholesterol. Frequency and Duration: The patient will be seen 2x/week x 4-6 weeks Short Term Goals: 1. Pt will demonstrate R shoulder AAROM flexion to 140 degrees. 2. Pt will demonstrate initiation of HEP program. 3. Pt will increase strength L lower trap 4+/5. 4. Pt will increase strength L middle trap. 5. Initiate self care/management of sx. Rocket Engine Tester Goals: 1. I HEP/joint protection. 2. Strength 5/5 R shoulder throughout. 3. Pt will be able to sleep >2 hours on R shoulder. 4. Be able to dress MOD I sx <2/10 in R shoulder. 5. Demonstrate good body mechanics and self care for management of R shoulder. Treatment Plan: Modalities to reduce pain, spasms and effusion. Manual therapy to restore motion and function. Therapeutic exercise to improve strength and flexibility. Neuromuscular re-education for posture and balance. Therapeutic activities to return to functional activities of daily living. Electronically signed by: Clara Abbasi PT, DPT Please sign and return to therapist. Thank you for your referral.
== END 2023-11-28 07:46 | disposition home or self-care (01) ==
LOC: HO.PTWFD 10:00
PROVIDERS: PCP Family Medicine; Visit Provider Family Medicine
DX: M25.511 Pain in right shoulder (principal); M25.562 Pain in left knee
CPT/HCPCS: 97110; 97161; 97535

== ENCOUNTER 2023-10-18 08:06 | Outpatient (AMB) | payer OTHER, SELFPAY ==
--- NOTE | 2023-10-18 08:06 | MHC.OFFVIS ---
Vital Signs 10/18/23 08:07 Height 4 ft 10 in Weight 130 lb 1.164 oz BMI 27.2 BP 118/66 Intake Visit Reasons: Pap and labs results Char House Supervisor Required: No Information Interpreted: non-clinical & clinical Accompanied by: Self / Same As Patient Allergies No Known Allergies Allergy (Verified 10/18/23 08:09) Is last menstrual period known: Yes Last menstrual period: 09/28/23 HPI Comments Details: Presenting for follow-up regarding counseling labs. Co testing was negative CBC, GC/CT, BV panel Trichomonas all negative HIV, hepatitis-B surface antigen, hepatitis-C antibody negative Rubella and varicella IgG immune PFSH Medical History Kidney stones History of blood clots High cholesterol Surgical History No pertinent past surgical history Family History Mother High blood pressure High cholesterol Thyroid disorder Father High blood pressure Maternal Grandmother High blood pressure Paternal Grandfather Diabetes Social History Household Members: Spouse Housing: House Alcohol intake: current Alcohol intake frequency: holidays/special occasions only Patient Tobacco Use Status: Never used Tobacco e-Cigarette/Vaping Use: Never Used service: No Current occupational status: unemployed and other Sexual orientation: Straight/Heterosexual Gender identity: Female Cognitive needs: No Hearing needs: No Vision needs: Yes Female Reproductive History Menstrual Date of last menstrual period: 09/28/23 Review of Systems Const All systems reviewed & are unremarkable except as noted in HPI and below Reports as per HPI and Reports no additional complaints GI Reports no additional complaints Reports no additional complaints Physical Exam Vital Signs: Last Vital Signs BP 118/66 10/18/23 08:07 BMI result Body Mass Index 27.2 Assessment & Plan Assessment & Plan (1) consult: Code(s): Z71.89 - Other specified counseling Category: Medical Plan: Discussed with the patient the results of her co testing, all blood work are negative. vitamin tablet p.o. q.d. recommended. All questions answered, the patient verbalized understanding Coding Level of Care Code Est Pt Level 3 (06334) Diagnoses consult Z71.89
[2023-10-18 08:07] VITALS: BP 118/66; BMI 27.2
== END 2023-10-18 09:47 | disposition home or self-care (01) ==
LOC: HO.HWS 08:06
PROVIDERS: PCP Family Medicine; Visit Provider Obstetrics & Gynecology
DX: Z30.09 Encounter for other general counseling and advice on contraception (principal); Z71.89 Other specified counseling
CPT/HCPCS: 99213

== ENCOUNTER → 2023-10-18 08:06 | Outpatient (BNVA) | payer OTHER, SELFPAY | PROVIDERS: PCP Family Medicine; Visit Provider Obstetrics & Gynecology | DX: Z71.89 Other specified counseling (principal) | CPT/HCPCS: 99212 ==

== ENCOUNTER 2023-11-08 10:42 | Outpatient (AMB) | payer OTHER, SELFPAY ==
[2023-11-08 10:47] VITALS: BP 120/70; PULSE 70; O2SAT 99; BMI 27.8
--- NOTE | 2023-11-08 10:47 | A.OFFPC_ITS ---
Vital Signs 11/08/23 10:47 Height 4 ft 10 in Weight 133 lb 2 oz BMI 27.8 BP 120/70 Blood Pressure Location Lt brachial Position Sitting Pulse 70 Pulse Source Pulse Oximeter Pulse Oximetry (%) 99 Intake Visit Reasons: f/u hypercholesterolemia Intake Note: Patient is here to follow up on her cholesterol. Is last menstrual period known: Yes Last menstrual period: 10/28/23 Allergies No Known Allergies Allergy (Verified 11/08/23 10:53) Tobacco use date assessed: 11/08/23 Dental Screening Dental Screen Date: 07/05/23 HPI f/u hypercholesterolemia HPI Details 38 y/o female presents to f/u HLD. Lipids were high but she is trying to get so had been avoiding lipid lowering drugs. No recent lipid panel to review. [facility] Medical History Kidney stones History of blood clots High cholesterol Surgical History No pertinent past surgical history Family History (Updated 11/08/23 @ 10:56 by Radha Ramirez CMA) Mother High blood pressure High cholesterol Thyroid disorder Father High blood pressure Maternal Grandmother High blood pressure Paternal Grandfather Diabetes Social History Household Members: Spouse Housing: House Alcohol intake: current Alcohol intake frequency: holidays/special occasions only Patient Tobacco Use Status: Never used Tobacco e-Cigarette/Vaping Use: Never Used service: No Current occupational status: unemployed and other Sexual orientation: Straight/Heterosexual Gender identity: Female Cognitive needs: No Hearing needs: No Vision needs: Yes Female Reproductive History Menstrual Date of last menstrual period: 10/28/23 Questionnaire Thrive Questionnaire Date Thrive assessed: 08/09/23 STONE-7 AMB Questionnaire STONE-7 Date STONE - 7 assessed: 08/09/23 Source: Developed by Drs. Dwaine Eid, Clemencia Bravo, Jaycob Lockett and colleagues, with an educational serina from [employer]. Review of Systems Const Denies chills, Denies fatigue, Denies fever(s), Denies headache(s) and Denies weakness ENT Denies dizziness and Denies headache(s) Card Denies dyspnea Resp Denies cough, Denies dyspnea, Denies wheezing and Denies other (shortness of breath) Musc Denies numbness and Denies tingling Neuro Denies dizziness, Denies headache(s), Denies numbness, Denies tingling and Denies weakness Psych Denies anxiety and Denies depression Endo Denies fatigue Aller/Immun Denies wheezing Physical exam (Primary Care) Vital Signs: Last Vital Signs Pulse 70 11/08/23 10:47 BP 120/70 11/08/23 10:47 Pulse Ox 99 11/08/23 10:47 BMI result Body Mass Index 27.8 Tobacco/Smoking Status: Tobacco use Status Tobacco use date assessed 11/08/23 11/08/23 10:54 Patient Tobacco Use Status Never used Tobacco 11/08/23 10:53 e-Cigarette/Vaping Use Never Used 11/08/23 10:53 Thrive Assessment: Date of Thrive Assessment Date Thrive assessed 08/09/23 11/08/23 10:53 Const General: well developed; No acute distress Nutritional Appearance: well nourished Orientation/consciousness: patient oriented x3 [facility] Head: Yes normocephalic and Yes atraumatic Eyes General: appearance normal, both eyes and all related structures Pupils: Equal, round and reactive pupils present EOM: EOMs intact bilaterally Resp Effort & Inspection: normal respiratory effort Auscultation: clear to auscultation bilaterally Cardio Rate: regular rate Rhythm: regular rhythm Heart sounds: S1 normal heart sound present, S2 normal heart sound present, no gallops, no murmurs and no rubs Neuro General: patient oriented x3 and gait normal Cranial nerves: Yes Equal, round and reactive pupils present Psych Affect: normal affect Assessment and Plan Assessment & Plan (1) Hypercholesterolemia: Code(s): E78.00 - Pure hypercholesterolemia, unspecified Plan: Patient?has?had?significantly?elevated?lipids?but?she?is?trying?t o?get??and?we?are?avoiding?statins?until?she?is?no?longer?trying?to?get? . Meantime?she?was?advised?to?work?on?a?diet?low?in?saturated?fats?and?cholesterol .??She?is?not?really?certain?that?she?has?made?a?lot?of?changes?regarding?this. Went?over?some?dietary?changes?she?can?try?to?implement. Will?recheck?lipids?and?advise?patient. As?previously?discussed,?when?she?is?done?with?pregnancies, will?want?to?start?a?statin?medication. Orders: Orders Lipid Panel Today Z00.00 - Encounter for general adult medical examination without abnormal findings Comprehensive [place]. Panel Fast Today Z00.00 - Encounter for general adult medical examination without abnormal findings Coding Level of Care Code Est Pt Level 3 (89565) Diagnoses Hypercholesterolemia E78.00
== END 2023-11-08 12:14 | disposition home or self-care (01) ==
PROVIDERS: PCP Family Medicine; Visit Provider Family Medicine
DX: E78.00 Pure hypercholesterolemia, unspecified (principal)
CPT/HCPCS: 99213

== ENCOUNTER 2024-05-31 08:32 | Outpatient (AMB) | payer OTHER, SELFPAY ==
--- NOTE | 2024-05-31 08:39 | A.OFFPC_ITS ---
Vital Signs 05/31/24 08:42 Height 4 ft 10 in Weight 134 lb 4 oz BMI 28.1 BP 110/60 Blood Pressure Location Lt brachial Position Sitting Respiration 14 Pulse 75 Pulse Source Pulse Oximeter Temp 99.7 F Temp Source Oral Pulse Oximetry (%) 100 Oxygen Delivery Method Room Air Intake Visit Reasons: Breast pain Intake Note: pt having breast pain [id number] and would also like a referral to reproductive pt is trying to conceive. Allergies No Known Allergies Allergy (Verified 05/31/24 08:41) Tobacco use date assessed: 11/08/23 Dental Screening Dental Screen Date: 07/05/23 HPI Breast pain HPI Details Patient?has?new?complaints?of?bilateral?breast ?pain.??She?is?also?noticing?lumps?in?bilateral?breast.??These?are?mildly?tender . She?denies?any?change?of?lumps?with?her?menstruation Denies?fevers?or?chills Patient?has?also?been?trying?to?get??for?over?a?year?without?success. She?would?like?a?referral?to?Reproductive?Medicine [facility] Medical History Kidney stones History of blood clots High cholesterol Surgical History No pertinent past surgical history Family History (Updated 11/08/23 @ 10:56 by Radha Ramirez CMA) Mother High blood pressure High cholesterol Thyroid disorder Father High blood pressure Maternal Grandmother High blood pressure Paternal Grandfather Diabetes Social History Household Members: Spouse Housing: House Alcohol intake: current Alcohol intake frequency: holidays/special occasions only Patient Tobacco Use Status: Never used Tobacco e-Cigarette/Vaping Use: Never Used service: No Current occupational status: unemployed and other Sexual orientation: Straight/Heterosexual Gender identity: Female Cognitive needs: No Hearing needs: No Vision needs: Yes Questionnaire PHQ-9 Over the last 2 weeks, how often have you been bothered by any of the following problems? 1. Little interest or pleasure in doing things: not at all 2. Feeling down, depressed, or hopeless: not at all 3. Trouble falling or staying asleep, or sleeping too much: not at all 4. Feeling tired or having little energy: several days 5. Poor appetite or overeating: not at all 6. Feeling bad about yourself - or that you are a failure or have let yourself or your family down: several days 7. Trouble concentrating on things, such as reading the newspaper or watching television: not at all 8. Moving or speaking so slowly that other people could have noticed. Or the opposite - being so fidgety or restless that you have been moving around a lot more than usual: not at all 9. Thoughts that you would be better off or of hurting yourself in some way: not at all Total score: 2 Source: Developed by Drs. Dwaine Eid, Clemencia Bravo, Jaycob Lockett and colleagues, with an educational serina from [employer]. Thrive Questionnaire Date Thrive assessed: 08/09/23 I am a: Patient What is your living situation today?: I have a steady place to live Within the past 12 months, did the food you bought not last and you didn't have the money to get more?: Often true Within the past 12 months, did you worry whether your food would run out before you got money to buy more?: Sometimes True Do you have trouble paying for medicines?: I choose not to answer this question Do you have trouble getting transportation to medical appointments?: No Do you have trouble paying your heating and electricity bill?: I choose not to answer this question Do you have trouble taking care of your child, family member or friend?: No Do you have trouble with day-to-day activities such as bathing, preparing meals, shopping, managing finances, etc.?: No Are you currently unemployed and looking for a job?: Yes Are you interested in more education?: Yes Please select the resources that you would like help with: None Currently or been in a relationship where the following occur: No concerns reported THRIVE Score: 2 AUDIT C Alcohol Use Questionnaire (AUDIT-C) 1. How often do you have a drink containing alcohol?: Never Total Score: 0 STONE-7 AMB Questionnaire STONE-7 Date STONE - 7 assessed: 08/09/23 Feeling nervous, anxious, or on edge: 0 = Not at all Not being able to stop or control worryin = Not at all Worrying too much about different things: 1 = Several days Trouble relaxin = Not at all Being so restless that it is hard to sit still: 0 = Not at all Becoming easily annoyed or irritable: 0 = Not at all Feeling afraid as if something awful might happen: 0 = Not at all Total STONE-7 score (0-4 normal; 5-9 mild; 10-14 moderate; 15-21 severe): 1 Source: Developed by Drs. Dwaine Eid, Clemenica Bravo, Jaycob Lockett and colleagues, with an educational serina from [employer]. Review of Systems Const Denies chills, Denies fatigue, Denies fever(s), Denies headache(s) and Denies weakness ENT Denies dizziness and Denies headache(s) Card Denies chest pain, Denies lightheadedness, Denies dyspnea and Denies other (Palpitations) Resp Denies cough, Denies dyspnea, Denies wheezing and Denies other ( shortness of breath) Musc Denies numbness and Denies tingling Skin/Breast Details: See?HPI Neuro Denies dizziness, Denies headache(s), Denies numbness, Denies tingling, Denies paresthesias and Denies weakness Psych Denies anxiety and Denies depression Endo Denies fatigue Aller/Immun Denies wheezing Physical exam (Primary Care) Vital Signs: Last Vital Signs Temp 99.7 F 05/31/24 08:42 Pulse 75 05/31/24 08:42 Resp 14 05/31/24 08:42 BP 110/60 05/31/24 08:42 Pulse Ox 100 05/31/24 08:42 Oxygen Delivery Method Room Air 05/31/24 08:42 BMI result Body Mass Index 28.1 Tobacco/Smoking Status: Tobacco use Status Tobacco use date assessed 11/08/23 05/31/24 08:46 Patient Tobacco Use Status Never used Tobacco 05/31/24 08:46 e-Cigarette/Vaping Use Never Used 05/31/24 08:46 PHQ-9: PHQ-9 Score PHQ-9: Total score 2 05/31/24 08:46 Thrive Assessment: Date of Thrive Assessment Date Thrive assessed 08/09/23 05/31/24 08:46 Currently or been in a relationship where the following occur: No concerns reported Const General: no acute distress and well developed Nutritional Appearance: well nourished Orientation/consciousness: patient oriented x3 HENMT Head: Yes normocephalic and Yes atraumatic Eyes General: appearance normal, both eyes and all related structures Pupils: Equal, round and reactive pupils present EOM: EOMs intact bilaterally Resp Effort & Inspection: normal respiratory effort Skin Other: 2 cm lump in R breast at 10 oclock. 3 cm lump in L breast from 11 to 1 oclock. Neuro General: patient oriented x3 and gait normal Cranial nerves: Yes Equal, round and reactive pupils present Psych Affect: normal affect Coding Level of Care Code Est Pt Level 4 (46513) Diagnoses Infertility, female N97.9 Breast pain in female N64.4 Breast lump N63.0 Assessment & Plan Assessment & Plan (1) Infertility, female: Code(s): N97.9 - Female infertility, unspecified Category: Medical Plan: 39-year-old?female who?has?been?tryi ng?with?her?partner?for?over?1?year?to?get? Referred?to?[facility]?reproductive medicine dept. Check labs (2) Breast pain in female: Code(s): N64.4 - Mastodynia Category: Medical Plan: Patient?bilateral?breast?pain?and?also?bilateral?breast?lumps. Will?check?imaging Check labs Follow-up?in?2-4?weeks Reassured?patient?that?bilateral?breast?lumps?and?also?tender?lumps?or?somewhat? less?concerning?for?malignancies. We?will?follow-up?together?to?review?imaging?& lab?work (3) Breast lump: Code(s): N63.0 - Unspecified lump in unspecified breast Category: Medical Plan: As above Orders: Orders Comprehensive Met. Panel Today N64.4 - Mastodynia CRP High Sensitivity Today N64.4 - Mastodynia TSH reflex Free T4 Today N64.4 - Mastodynia, Z00.00 - Encounter for general adult medical examination without abnormal findings Vitamin D 25-OH Total Today E55.9 - Vitamin D deficiency, unspecified, N64.4 - Mastodynia MM diagnostic mammo BI Today N63.0 - Unspecified lump in unspecified breast, N64.4 - Mastodynia US breast LT complete Today N63.0 - Unspecified lump in unspecified breast, N64.4 - Mastodynia Prolactin Today N64.4 - Mastodynia Erythrocyte Sedimentation Rate Today N64.4 - Mastodynia US breast RT complete Today N63.0 - Unspecified lump in unspecified breast, N64.4 - Mastodynia Referrals Infertility Reproductive Referral (female) N97.9 - Female infertility, unspecified
[2024-05-31 08:42] VITALS: BP 110/60; PULSE 75; RESP 14; TEMP 37.6; O2SAT 100; BMI 28.1
== END 2024-05-31 09:11 | disposition home or self-care (01) ==
PROVIDERS: PCP Family Medicine; Visit Provider Family Medicine
DX: N97.9 Female infertility, unspecified (principal); N64.4 Mastodynia; N63.0 Unspecified lump in unspecified breast

== ENCOUNTER → 2024-05-31 08:32 | Outpatient (BNVA) | payer OTHER, SELFPAY | PROVIDERS: PCP Family Medicine; Visit Provider Family Medicine | DX: N97.9 Female infertility, unspecified (principal); N64.4 Mastodynia; N63.10 Unspecified lump in the right breast, unspecified quadrant; N63.20 Unspecified lump in the left breast, unspecified quadrant | CPT/HCPCS: 96127; 99212 ==

== ENCOUNTER 2024-05-31 09:23 | Outpatient (REF) | payer OTHER, SELFPAY ==
[2024-05-31 11:53] LABS: Erythrocyte Sedimentation Rate 2 MM/HR (0-20)
[2024-05-31 11:55] LABS: Alanine Aminotransferase 17 U/L (0-31); Albumin Level 4.3 g/dL (3.5-5.0); Anion Gap 10 (12-20); Aspartate Amino Transferase 19 U/L (5-31); Bilirubin Total 0.8 mg/dL (0.0-1.0); Blood Urea Nitrogen 10 mg/dL (9-16); Calcium 8.8 mg/dL (8.4-10.2); Carbon Dioxide 25 mmol/L (22-29); Chloride 107 mmol/L (96-108); Cholesterol 254 mg/dL (<200); Estimated Glomerular Filt Rate > 60; Glucose Fasting 92 mg/dL (60-99); Glucose Random 91 mg/dL (60-115); HDL Cholesterol 61 mg/dL (>40); LDL Cholesterol Calculated 180 mg/dL (<100); Sodium 138 mmol/L (135-145); Total Protein 6.8 g/dL (6.5-8.0); Triglycerides 67 mg/dL (<150)
[2024-05-31 12:30] LABS: TSH reflex Free T4 2.29 uIU/mL (0.32-4.0); Vitamin D 25-OH Total 64.5 ng/mL (>30)
[2024-05-31 12:44] LABS: Alkaline Phosphatase 49 U/L (39-117)
[2024-06-01 07:58] LABS: Prolactin 21.4 ng/mL
[2024-06-01 09:59] LABS: CRP High Sensitivity 0.4 mg/L
== END 2024-05-31 09:24 | disposition home or self-care (01) ==
LOC: HO.WFDLDS 09:23
PROVIDERS: Visit Provider Family Medicine
DX: Z00.00 Encounter for general adult medical examination without abnormal findings (principal); E55.9 Vitamin D deficiency, unspecified; N64.4 Mastodynia
CPT/HCPCS: 36415; 80053; 80061; 82306; 84146; 84443; 85652; 86141

== ENCOUNTER 2024-06-14 12:31 | Outpatient (AMB) | payer OTHER, SELFPAY ==
--- NOTE | 2024-06-14 12:27 | MHC.PC.OV ---
Intake Visit Reasons: F/U Bloodwork Intake Note: patient here for telehealth lab review Field Marketing Representative Required: No Is last menstrual period known: Yes Last menstrual period: 06/07/24 Post menopausal: No Patient : No Allergies No Known Allergies Allergy (Verified 06/14/24 12:28) Tobacco use date assessed: 06/14/24 Dental Screening Dental Screen Date: 06/14/24 Did you have a dental visit in the last 12 months?: Yes Did you have a dental problem in the last 6 months where you did not have access to dental care?: No Was dental information given to patient?: Patient has dentist HPI F/U Bloodwork HPI Details 39 y/o female presents to f/u labs. Labs drawn 05/31/24. Reviewed labs with pt. Triglycerides 67. TC 254. LDL 180. HDL 61. Had made a referral to fertility clinic but pt states she has not been contacted yet. [facility] Medical History Kidney stones History of blood clots High cholesterol Surgical History No pertinent past surgical history Family History (Updated 11/08/23 @ 10:56 by Radha Ramirez CMA) Mother High blood pressure High cholesterol Thyroid disorder Father High blood pressure Maternal Grandmother High blood pressure Paternal Grandfather Diabetes Social History Household Members: Spouse Housing: House Alcohol intake: current Alcohol intake frequency: holidays/special occasions only Patient Tobacco Use Status: Never used Tobacco e-Cigarette/Vaping Use: Never Used Patient : No service: No Current occupational status: unemployed and other Sexual orientation: Straight/Heterosexual Gender identity: Female Cognitive needs: No Hearing needs: No Vision needs: Yes Female Reproductive History Menstrual Date of last menstrual period: 06/07/24 Questionnaire Thrive Questionnaire Date Thrive assessed: 05/31/24 I am a: Patient What is your living situation today?: I have a steady place to live Within the past 12 months, did the food you bought not last and you didn't have the money to get more?: Often true Within the past 12 months, did you worry whether your food would run out before you got money to buy more?: Sometimes True Do you have trouble paying for medicines?: I choose not to answer this question Do you have trouble getting transportation to medical appointments?: No Do you have trouble paying your heating and electricity bill?: I choose not to answer this question Do you have trouble taking care of your child, family member or friend?: No Do you have trouble with day-to-day activities such as bathing, preparing meals, shopping, managing finances, etc.?: No Are you currently unemployed and looking for a job?: Yes Are you interested in more education?: Yes Please select the resources that you would like help with: None Currently or been in a relationship where the following occur: No concerns reported THRIVE Score: 2 AUDIT C Alcohol Use Questionnaire (AUDIT-C) 3. How often do you have six or more drinks on one occasion?: Never Total Score: 0 STONE-7 AMB Questionnaire STONE-7 Date STONE - 7 assessed: 08/09/23 Source: Developed by Drs. Dwaine Eid, Clemencia Bravo, Jaycob Lockett and colleagues, with an educational serina from [employer]. Physical exam (Primary Care) Tobacco/Smoking Status: Tobacco use Status Tobacco use date assessed 06/14/24 06/14/24 12:31 Patient Tobacco Use Status Never used Tobacco 06/14/24 12:31 e-Cigarette/Vaping Use Never Used 06/14/24 12:31 Thrive Assessment: Date of Thrive Assessment Date Thrive assessed 05/31/24 06/14/24 12:31 Currently or been in a relationship where the following occur: No concerns reported Telehealth Telehealth Telehealth Platform: Telephone Location of provider rendering services: practice address Location of patient: address on file Patient Identification confirmed using: Name, : Yes Telehealth method: voice only Patient verbally consented to treatment: Yes Patient verbally consented to billing insurance company: Yes Patient informed of any privacy concerns related to visit: Yes Minutes spent on Phone/Video with Pt.: 5 Coding Level of Care Code Tele Est Pt Level 2 (28203) Diagnoses Elevated LDL cholesterol level E78.00 Infertility, female N97.9 Breast lump N63.0 Assessment & Plan Assessment & Plan (1) Elevated LDL cholesterol level: Code(s): E78.00 - Pure hypercholesterolemia, unspecified Category: Medical Plan: LDL?cholesterol?is?still?significantly?elevated. Patient?is?trying?to?get??and?we?are?holding?off?on?medications Advised?she?should?work?at?a?diet?low?in?saturated?fats?and?cholesterol Advised?exercise?and?also?weight?control When?patient?is?no?longer?working?towards?a??we?should?discuss?medication?if?she?is?not?able?to?bring?her?LDL?cholesterol?down?significantly (2) Infertility, female: Code(s): N97.9 - Female infertility, unspecified Category: Medical Plan: Had?made?referral?to?[facility]?infertility?clinic?but?they?are?no?longer?open. Referral?was?made?to?[facility]?infertility?clinic?in?she?has?an?appointment (3) Breast lump: Code(s): N63.0 - Unspecified lump in unspecified breast Category: Medical Plan: Diagnostic?mammogram?and?ultrasound?are?ordered?for?June?. We?can?follow-up?in?the?middle?of?July
== END 2024-06-14 17:05 | disposition home or self-care (01) ==
LOC: HO.HMCFM 12:31
PROVIDERS: PCP Family Medicine; Visit Provider Family Medicine
DX: E78.00 Pure hypercholesterolemia, unspecified (principal); N97.9 Female infertility, unspecified; N63.0 Unspecified lump in unspecified breast

== ENCOUNTER → 2024-06-14 12:31 | Outpatient (BNVA) | payer OTHER, SELFPAY | PROVIDERS: PCP Family Medicine; Visit Provider Family Medicine ==

== ENCOUNTER 2024-07-06 09:03 | Outpatient (REF) | payer OTHER, SELFPAY ==
--- NOTE | ~2024-07-06 | US_ITS ---
EXAMINATION: MM DIAGNOSTIC DIGITAL BREAST TOMOSYNTHESIS, BILATERAL Bilateral Limited ultrasound. CLINICAL INFORMATION: Bilateral palpable lumps right lump felt by patient's physician left lump felt by the patient. COMPARISON: Mammography: Comparison is made with relevant prior exams. TECHNIQUE: Digital breast mammography with tomosynthesis is performed in both the craniocaudal and mediolateral oblique views along with computer-aided detection (CAD). Bilateral Limited ultrasound. FINDINGS: The breasts are heterogeneously dense, which may obscure small masses (ACR BI-RADS breast composition Category c). There are bilateral circumscribed oval masses. BB marker in the upper outer left breast without underlying circumscribed oval masses. Circumscribed oval masses in the upper outer right breast. No suspicious calcifications or other abnormal findings. Targeted color Doppler ultrasound scanning in the left breast upper outer quadrant area of patient's palpable lump demonstrates multiple simple cysts there is a simple cyst at 11:00 2 cm from nipple measuring 25 x 11 mm. Simple cyst at 1:00 2 cm from nipple measuring 31 x 17 x 23 mm. Simple cyst at 3:00 2 cm from nipple measuring 22 x 9 x 27 mm. 2 adjacent simple cyst at 9:00 7 cm from the nipple measuring 1 cm 9 mm. Targeted color Doppler ultrasound scanning in the right breast upper outer quadrant area of the physician felt palpable lump in straight: A simple cyst at 9:00 7 cm from nipple measuring 10 x 7 x 12 mm. Two Adjacent simple cysts at 10:00 3 cm from the nipple measuring 9 x 5 mm and 9 x 6 mm. A simple to minimally complicated cyst at 10:00 3 cm from nipple measuring 5 x 4 mm. A group of adjacent minimally possible cyst and minimal complicated cysts with intervening thin breast tissue septations which are avascular at 10:00 recent meters from the nipple measuring up to 9 mm. Results are provided to the patient at time of visit by the technologist. US/US breast BI limited mamm only IMPRESSION: Bilateral simple and minimally complicated cysts on ultrasound correlating with the palpable lumps. Benign. ASSESSMENT: BI-RADS BI-RADS 2 - Benign Findings RECOMMENDATION: 1 year F/U This patient's information was entered into a reminder system with a target due date for their next mammogram. Electronically signed by: Ashley Cook DO 07/06/2024 10:49 AM EST RP
== END 2024-07-06 09:04 | disposition home or self-care (01) ==
LOC: HO.MAMMO 09:03
PROVIDERS: PCP Family Medicine; Visit Provider Family Medicine
DX: N64.4 Mastodynia (principal); N63.25 Unspecified lump in the left breast, overlapping quadrants; N63.11 Unspecified lump in the right breast, upper outer quadrant
CPT/HCPCS: 76642; 77062; 77066

== ENCOUNTER → 2024-07-06 09:15 | Outpatient (BNV) | payer OTHER, SELFPAY | PROVIDERS: PCP Family Medicine; Visit Provider Internal Medicine | DX: N60.01 Solitary cyst of right breast (principal); N60.02 Solitary cyst of left breast | CPT/HCPCS: 76642; 77062; 77066 ==

== ENCOUNTER 2024-07-20 10:49 | Outpatient (AMB) | payer OTHER, SELFPAY ==
--- NOTE | 2024-07-20 10:59 | MHC.OFFWIV ---
Intake Vital Signs 07/20/24 11:02 Height 4 ft 10 in Weight 136 lb 6 oz BMI 28.5 BP 101/66 Blood Pressure Location Lt brachial Position Sitting Respiration 12 Pulse 59 Pulse Source Pulse Oximeter Temp 97.1 F Temp Source Oral Pulse Oximetry (%) 99 Oxygen Delivery Method Room Air Intake Visit Reasons: Bump in Left eye Intake Note: Patient complaining of left eye bump and bothering x 1 week Patient Tobacco Use Status: Never used Tobacco Allergies No Known Allergies Allergy (Verified 07/20/24 11:15) Do you need a note to return to daycare/school/sports/work: No HPI HPI Comments History of Present Illness Details History - The patient is a 39-year-old female presenting with swelling of the left eye. - She has been experiencing a bothersome bump within the left eye for approximately one week. - The location is on the lower part of the eye interiorly, expressing a sensation of an embedded foreign body. - Despite the sensation, no known foreign body introduction occurred, leading to speculation of an unnoticed event. - The patient's vision is reportedly stable, and she uses corrective lenses. - There are no accompanying symptoms of drainage, itchiness, fever, or chills. - Her last ophthalmological evaluation was conducted the prior year. - No pharmacological allergies are reported. - Due to uncertainty, no home interventions were initiated to manage the issue. - The condition is associated with a newfound sensitivity to light. Exam: Amblyopia R eye, + photophobia bilat, no lid edema, chemosis L eye No drainage conjuntiva without erythema scleras anicteric Discussion Notes In today's consultation, I discussed with the patient her symptoms and the likelihood that they require evaluation by an group dynamics instructor due to the swelling of the left eye and light sensitivity. I emphasized that primary care is limited in managing ocular conditions of this nature, and an eye doctor's assessment is necessary. I acknowledged the potential issue with insurance coverage as described by the patient but reiterated that evaluation is important. I offered to assist in arranging an ophthalmology appointment or suggested the patient could independently manage the referral. Time spent 20 min [facility] called at 1120 am, no Opho only Opto Called [facility] appt 07/25/24 @ 1:50 pm soonest avail Assessment and Plan 39-year-old female with no significant ophthalmologic history presenting with swelling of the left eye. Symptoms include a sensation of a bump and light sensitivity, requiring specialist evaluation. The clinical findings suggest potential for conditions such as conjunctivitis or episcleritis. 1. Swelling Of The Left Eye Obtain ophthalmological evaluation urgently due to the swelling and sensitivity to light. Possible differential diagnoses include conjunctivitis or episcleritis. Encourage the patient to seek specialist evaluation where a complete eye exam can determine the next steps in management. Patient Instructions - appt 07/25/24 1:50 pm [facility] - Monitor the eye for any changes in vision or additional symptoms, and seek immediate attention if these occur. - Avoid self-administration of any medication or ointment unless prescribed by a healthcare professional. - Upon experiencing increased pain, visual changes, or if concerned, promptly visit emergency services Consent Patient was informed and verbally consented to the use of an ambient scribe for clinic note documentation during this visit. Total time spent caring for the patient today was 45 minutes. This includes time spent before the visit reviewing the chart, time spent during the visit, and time spent after the visit on documentation, reviewing laboratory results, diagnostic imaging, medications, performing a medically necessary evaluation, counseling on diagnoses, care coordination, ordering appropriate tests, ordering appropriate medications, review of tests performed by other providers, reporting test results with the patient, communication with other healthcare providers. COUNT INCLUDES THE [facility] Medical History Kidney stones History of blood clots High cholesterol Surgical History No pertinent past surgical history Family History (Updated 11/08/23 @ 10:56 by aRdha Ramirez CMA) Mother High blood pressure High cholesterol Thyroid disorder Father High blood pressure Maternal Grandmother High blood pressure Paternal Grandfather Diabetes Social History Household Members: Spouse Housing: House Alcohol intake: current Alcohol intake frequency: holidays/special occasions only Patient Tobacco Use Status: Never used Tobacco e-Cigarette/Vaping Use: Never Used service: No Current occupational status: unemployed and other Sexual orientation: Straight/Heterosexual Gender identity: Female Cognitive needs: No Hearing needs: No Vision needs: Yes Physical Exam Vital Signs: Last Vital Signs Temp 97.1 F 07/20/24 11:02 Pulse 59 07/20/24 11:02 Resp 12 07/20/24 11:02 BP 101/66 07/20/24 11:02 Pulse Ox 99 07/20/24 11:02 Oxygen Delivery Method Room Air 07/20/24 11:02 BMI result Body Mass Index 28.5 Assessment & Plan Assessment & Plan (1) Chemosis of left conjunctiva: Code(s): H11.422 - Conjunctival edema, left eye (2) Photophobia of both eyes: Code(s): H53.143 - Visual discomfort, bilateral Plan . Orders: Referrals Ophthalmology Referral H11.422 - Conjunctival edema, left eye, H53.143 - Visual discomfort, bilateral Coding Level of Care Code Est Pt Level 4 (74814) Diagnoses Chemosis of left conjunctiva H11.422 Photophobia of both eyes H53.143
[2024-07-20 11:02] VITALS: BP 101/66; PULSE 59; RESP 12; TEMP 36.2; O2SAT 99; BMI 28.5
== END 2024-07-20 11:44 | disposition home or self-care (01) ==
PROVIDERS: PCP Family Medicine; Visit Provider Nurse Practitioner Family
DX: H11.422 Conjunctival edema, left eye (principal); H53.143 Visual discomfort, bilateral

== ENCOUNTER → 2024-07-20 10:49 | Outpatient (BNVA) | payer OTHER, SELFPAY | PROVIDERS: PCP Family Medicine | DX: H11.422 Conjunctival edema, left eye (principal); H53.143 Visual discomfort, bilateral | CPT/HCPCS: 99212 ==

== ENCOUNTER 2024-07-30 09:44 | Outpatient (AMB) | payer OTHER, SELFPAY ==
--- NOTE | 2024-07-30 09:46 | A.OFFPC_ITS ---
Vital Signs 07/30/24 09:49 Height 4 ft 10 in Weight 137 lb 2 oz BMI 28.7 BP 100/60 Blood Pressure Location Lt brachial Position Sitting Respiration 12 Pulse 90 Pulse Source Pulse Oximeter Temp 99.7 F Temp Source Oral Pulse Oximetry (%) 98 Oxygen Delivery Method Room Air Intake Visit Reasons: f/u breast pain, ultrasound Intake Note: f/u ultrasound review Web Feeder Required: No Allergies No Known Allergies Allergy (Verified 07/30/24 09:49) Medication List - Last Reconciled 07/30/24 by Luis Estrella MD PNV 119-iron fum-folic acid 29 mg iron- 1 mg tabs PO Tobacco use date assessed: 06/14/24 Dental Screening Dental Screen Date: 06/14/24 HPI f/u breast pain, ultrasound HPI Details 39 y/o female presents today to f/u [facility] [place]. Breast ultrasound 07/06/24 shows: Bilateral simple and minimally complicated cysts on ultrasound correlating with the palpable lumps. Benign. [facility] Medical History Kidney stones History of blood clots High cholesterol Surgical History No pertinent past surgical history Family History (Updated 11/08/23 @ 10:56 by Radha Ramirez CMA) Mother High blood pressure High cholesterol Thyroid disorder Father High blood pressure Maternal Grandmother High blood pressure Paternal Grandfather Diabetes Social History Household Members: Spouse Housing: House Alcohol intake: current Alcohol intake frequency: holidays/special occasions only Patient Tobacco Use Status: Never used Tobacco e-Cigarette/Vaping Use: Never Used service: No Current occupational status: unemployed and other Sexual orientation: Straight/Heterosexual Gender identity: Female Cognitive needs: No Hearing needs: No Vision needs: Yes Questionnaire PHQ-9 Over the last 2 weeks, how often have you been bothered by any of the following problems? 1. Little interest or pleasure in doing things: not at all 2. Feeling down, depressed, or hopeless: not at all 3. Trouble falling or staying asleep, or sleeping too much: not at all 4. Feeling tired or having little energy: not at all 5. Poor appetite or overeating: not at all 6. Feeling bad about yourself - or that you are a failure or have let yourself or your family down: not at all 7. Trouble concentrating on things, such as reading the newspaper or watching television: not at all 8. Moving or speaking so slowly that other people could have noticed. Or the opposite - being so fidgety or restless that you have been moving around a lot more than usual: not at all 9. Thoughts that you would be better off or of hurting yourself in some way: not at all Total score: 0 Source: Developed by Drs. Dwaine Eid, Clemencia Bravo, Jaycob Lockett and colleagues, with an educational serina from [employer]. Thrive Questionnaire Date Thrive assessed: 07/24/24 I am a: Patient What is your living situation today?: I have a steady place to live Within the past 12 months, did the food you bought not last and you didn't have the money to get more?: Never true Within the past 12 months, did you worry whether your food would run out before you got money to buy more?: Never true Do you have trouble paying for medicines?: No Do you have trouble getting transportation to medical appointments?: No Do you have trouble paying your heating and electricity bill?: I choose not to answer this question Do you have trouble taking care of your child, family member or friend?: No Do you have trouble with day-to-day activities such as bathing, preparing meals, shopping, managing finances, etc.?: No Are you currently unemployed and looking for a job?: Yes Are you interested in more education?: Yes Please select the resources that you would like help with: Job search/training and Education Currently or been in a relationship where the following occur: No concerns reported THRIVE Score: 0 AUDIT C Alcohol Use Questionnaire (AUDIT-C) 1. How often do you have a drink containing alcohol?: Never Total Score: 0 STONE-7 AMB Questionnaire STONE-7 Date STONE - 7 assessed: 08/09/23 Feeling nervous, anxious, or on edge: 0 = Not at all Not being able to stop or control worryin = Not at all Worrying too much about different things: 0 = Not at all Trouble relaxin = Not at all Being so restless that it is hard to sit still: 0 = Not at all Becoming easily annoyed or irritable: 0 = Not at all Feeling afraid as if something awful might happen: 0 = Not at all Total STONE-7 score (0-4 normal; 5-9 mild; 10-14 moderate; 15-21 severe): 0 Source: Developed by Drs. Dwaine Eid, Clemencia Bravo, Jaycob Lockett and colleagues, with an educational serina from [employer]. Review of Systems Const Denies chills, Denies fatigue, Denies fever(s), Denies headache(s) and Denies weakness ENT Denies dizziness and Denies headache(s) Card Denies dyspnea Resp Denies cough, Denies dyspnea, Denies wheezing and Denies other (shortness of breath) Musc Denies numbness and Denies tingling Neuro Denies dizziness, Denies headache(s), Denies numbness, Denies tingling and Denies weakness Psych Denies anxiety and Denies depression Endo Denies fatigue Aller/Immun Denies wheezing Physical exam (Primary Care) Vital Signs: Last Vital Signs Temp 99.7 F 07/30/24 09:49 Pulse 90 07/30/24 09:49 Resp 12 07/30/24 09:49 BP 100/60 07/30/24 09:49 Pulse Ox 98 07/30/24 09:49 Oxygen Delivery Method Room Air 07/30/24 09:49 BMI result Body Mass Index 28.7 Tobacco/Smoking Status: Tobacco use Status Tobacco use date assessed 06/14/24 07/30/24 09:48 Patient Tobacco Use Status Never used Tobacco 07/30/24 09:48 e-Cigarette/Vaping Use Never Used 07/30/24 09:48 PHQ-9: PHQ-9 Score PHQ-9: Total score 0 07/30/24 10:00 Thrive Assessment: Date of Thrive Assessment Date Thrive assessed 07/24/24 07/30/24 09:48 Currently or been in a relationship where the following occur: No concerns reported Const General: well developed; No acute distress Nutritional Appearance: well nourished Orientation/consciousness: patient oriented x3 HENMT Head: Yes normocephalic and Yes atraumatic Eyes General: appearance normal, both eyes and all related structures Pupils: Equal, round and reactive pupils present EOM: EOMs intact bilaterally Resp Effort & Inspection: normal respiratory effort Neuro General: patient oriented x3 and gait normal Cranial nerves: Yes Equal, round and reactive pupils present Psych Affect: normal affect Coding Level of Care Code Est Pt Level 3 (52923) Diagnoses Breast lump N63.0 Hypercholesterolemia E78.00 Assessment & Plan Assessment & Plan (1) Breast lump: Code(s): N63.0 - Unspecified lump in unspecified breast Category: Medical Plan: Ultrasound?reveals?benign?cysts. Overcome?patient?says?these?are?quite?painful?and?she?would?like?to?discuss?[place]?or?excision?with?a?surgeon. Referred?to?surgery (2) Hypercholesterolemia: Code(s): E78.00 - Pure hypercholesterolemia, unspecified Category: Medical Plan: Ongoing?elevated?cholesterol?levels She?still?wants?to?hold?off?on?statins?as?she?is?trying?to?get? Will?have?her?recheck?lipid?levels?and?advise?patient Orders: Referrals General Surgery Referral N63.0 - Unspecified lump in unspecified breast
[2024-07-30 09:49] VITALS: BP 100/60; PULSE 90; RESP 12; TEMP 37.6; O2SAT 98; BMI 28.7
== END 2024-07-30 10:10 | disposition home or self-care (01) ==
PROVIDERS: PCP Family Medicine; Visit Provider Family Medicine
DX: N63.0 Unspecified lump in unspecified breast (principal); E78.00 Pure hypercholesterolemia, unspecified

== ENCOUNTER → 2024-07-30 09:44 | Outpatient (BNVA) | payer OTHER, SELFPAY | PROVIDERS: PCP Family Medicine; Visit Provider Family Medicine | DX: E78.00 Pure hypercholesterolemia, unspecified (principal); N60.01 Solitary cyst of right breast; N60.02 Solitary cyst of left breast | CPT/HCPCS: 99212 ==

== ENCOUNTER 2024-08-14 12:53 | Outpatient (AMB) | payer OTHER, SELFPAY ==
--- NOTE | 2024-08-14 12:55 | A.OFFVIS_ITS ---
Vital Signs 3 08/14/24 13:02 Height 4 ft 10 in Weight 134 lb BMI 28.0 BP 133/83 Blood Pressure Location Rt brachial Position Sitting Pulse 72 Intake Visit Reasons: Unspecified breast lump Intake Note: Patient is seen in office for evaluation and treatment of bilateral breast lump. Pt c/o: lumps are painful to touch. Denies nipple discharge. Reports no personal or family hx of brast CA. us/mm:07/06/24 V Belt Coverer Required: No Accompanied by: spouse Deo Varma Allergies No Known Allergies Allergy (Verified 08/14/24 13:01) Medication List - Last Reconciled 08/14/24 by Eliel Phillips MD PNV 119-iron fum-folic acid 29 mg iron- 1 mg tabs PO HPI Comments Details: 31-year-old female patient presenting with complaints of bilateral breast pain found to have a palpable mass in both breasts. Subsequent workup with mammogram and ultrasound revealed multiple simple cysts in both the left and right breast corresponding to the area of palpable masses. She reports a previous history of a breast cyst aspiration on the left side several years ago. She denies any previous breast surgery or breast biopsies. Family history is negative for breast cancer or ovarian cancer. She is G0. [facility] Medical History Kidney stones History of blood clots High cholesterol Surgical History No pertinent past surgical history Family History Mother High blood pressure High cholesterol Thyroid disorder Father High blood pressure Maternal Grandmother High blood pressure Paternal Grandfather Diabetes Social History Household Members: Spouse Housing: House Alcohol intake: current Alcohol intake frequency: holidays/special occasions only Patient Tobacco Use Status: Never used Tobacco e-Cigarette/Vaping Use: Never Used service: No Current occupational status: unemployed and other Sexual orientation: Straight/Heterosexual Gender identity: Female Cognitive needs: No Hearing needs: No Vision needs: Yes Review of Systems Const All systems reviewed & are unremarkable except as noted in HPI and below Physical Exam Vital Signs: Last Vital Signs Pulse 72 08/14/24 13:02 BP 133/83 08/14/24 13:02 BMI result Body Mass Index 28.0 Const General: cooperative and no acute distress Nutritional Appearance: well nourished Orientation/consciousness: patient oriented x3 Limitations: no limitations HEENT Head: Yes normocephalic and Yes atraumatic Ears: hearing grossly normal bilaterally Chest Chest/axillae images: 2 1. Multiple areas of fibrocystic change with possible multiple small cysts in the the upper outer quadrant, tender to palpation. 2. 11:00 o'clock palpable cyst, tender to palpation 3. 01:00 o'clock palpable cyst largest of the 2 Resp Effort & Inspection: normal respiratory effort, no audible wheezes, no cough and no respiratory distress Cardio Jugular venous distension: no JVD GI Inspection: Yes normal to inspection Skin Other: Warm, dry, no rash Neuro General: patient oriented x3 Extrem General: Yes no clubbing, cyanosis or edema Office Procedures FNA BIOPSY FNA Biopsy Preoperative diagnosis: Left breast cyst x2 Postoperative diagnosis: Same Procedure: Aspiration left breast cyst x2 Surgeon: Eliel Phillips MD Food Specialist: None Anesthesia: Lidocaine 1% with epinephrine Indications for procedure: Painful cyst in the left breast at 11 and 01:00 o'clock Operative findings: Approximately 2 cc aspirated from the 11:00 o'clock cyst and 7 cc from the 01:00 o'clock cyst Specimen: None Estimated blood loss: None Complications: None Procedure details: Patient was placed in a supine position. The site of the palpable cyst was identified by the patient. After assuring informed consent, the skin was prepped with Betadine and draped in a sterile fashion. Lidocaine was infiltrated in the skin between the 2 cysts. An 18 gauge needle was then inserted into both cysts using the same puncture site. A total of 9 mL of fluid was aspirated from the 2. Fluid was consistent with normal breast fluid. Sterile bandage was then applied. The patient tolerated the procedure well and was discharged to home in stable condition. Fine Needle Aspiration: 09777- FNA 1st lesion w/o image Assessment & Plan Assessment & Plan (1) Breast lump: Code(s): N63.0 - Unspecified lump in unspecified breast Category: Medical Qualifiers: Laterality: unspecified laterality Qualified Code(s): N63.0 - Unspecified lump in unspecified breast Plan 39-year-old female patient with bilateral breast pain found to have bilateral palpable breast lumps. Workup with mammogram and ultrasound were consistent with bilateral simple cysts the largest being in the 1 o'clock position of the left breast. Examination does reveal bilateral areas of fibrocystic change with larger cyst in the left breast in the both the 11 and 1 o'clock position. Cyst in the right breast were much smaller. She underwent cyst aspiration of the 2 left cyst today in the office with production of approximately 9 mL of normal breast fluid. She requested aspiration of the right breast cyst as well although I am not able to feel the cyst well enough to perform an aspiration therefore I recommended ultrasound-guided aspiration. She will return in 1 month for repeat examination. Orders: Orders 2 US breast cyst asp RT Today N63.0 - Unspecified lump in unspecified breast Coding Level of Care Code New Pt Level 4 (56930) Diagnoses Mass of breast, unspecified laterality N63.0 Laterality: unspecified laterality CPT Codes FNA Biopsy - Fine Needle Aspiration: 24651- FNA 1st lesion w/o image ([id number])
[2024-08-14 13:02] VITALS: BP 133/83; PULSE 72; BMI 28.0
== END 2024-08-14 13:18 | disposition home or self-care (01) ==
PROVIDERS: PCP Family Medicine; Visit Provider Surgery
DX: N63.11 Unspecified lump in the right breast, upper outer quadrant (principal); N63.25 Unspecified lump in the left breast, overlapping quadrants
CPT/HCPCS: 10021; 99204

== ENCOUNTER → 2024-08-14 12:53 | Outpatient (BNVA) | payer OTHER, SELFPAY | PROVIDERS: PCP Family Medicine; Visit Provider Surgery | DX: N63.21 Unspecified lump in the left breast, upper outer quadrant (principal); N63.22 Unspecified lump in the left breast, upper inner quadrant | CPT/HCPCS: 10021; 99202 ==

== ENCOUNTER 2024-08-30 07:58 | Outpatient (REF) | payer OTHER, SELFPAY ==
--- NOTE | ~2024-08-30 | US_ITS ---
PROCEDURE: ULTRASOUND-GUIDED RIGHT BREAST CYST ASPIRATION. CLINICAL INFORMATION: Multiple simple cysts on ultrasound which are painful to the patient therefore cyst aspiration was requested. COMPARISON: Prior imaging on PACS. TECHNIQUE: The details of the procedure, as well as the risks, benefits, and alternatives to the procedure were explained to the patient in detail and all of her questions were answered, after which, written informed consent was obtained. PROCEDURE: Prior to the procedure, sonography revealed multiple simple cysts in the right breast 10,11 and 12:00.. A time-out was performed, the cysts intended for aspiration were targeted and the skin of the right breast was then prepped and draped in the usual sterile fashion. Using sonographic guidance, sterile technique, and 1% lidocaine without epinephrine for local anesthesia, simple to minimally complicated cysts were aspirated with a 22-gauge needle at 10,11 and 12:00. No clip was placed. Great tented normal appearing fluid was aspirated. No specimen or fluid was sent to pathology as everything appeared normal. No postprocedure mammogram performed. The patient tolerated the procedure well and, after assuring adequate hemostasis, was discharged in good condition after reviewing post aspiration breast care instructions. US/US breast cyst asp RT IMPRESSION: 1. Uncomplicated sonographically-guided cyst aspiration of the right breast Electronically signed by: Ashley Cook DO 08/30/2024 10:56 AM EDT
--- NOTE | ~2024-08-30 | US_ITS ---
PROCEDURE: ULTRASOUND-GUIDED RIGHT BREAST CYST ASPIRATION. CLINICAL INFORMATION: Multiple simple cysts on ultrasound which are painful to the patient therefore cyst aspiration was requested. COMPARISON: Prior imaging on PACS. TECHNIQUE: The details of the procedure, as well as the risks, benefits, and alternatives to the procedure were explained to the patient in detail and all of her questions were answered, after which, written informed consent was obtained. PROCEDURE: Prior to the procedure, sonography revealed multiple simple cysts in the right breast 10,11 and 12:00.. A time-out was performed, the cysts intended for aspiration were targeted and the skin of the right breast was then prepped and draped in the usual sterile fashion. Using sonographic guidance, sterile technique, and 1% lidocaine without epinephrine for local anesthesia, simple to minimally complicated cysts were aspirated with a 22-gauge needle at 10,11 and 12:00. No clip was placed. Great tented normal appearing fluid was aspirated. No specimen or fluid was sent to pathology as everything appeared normal. No postprocedure mammogram performed. The patient tolerated the procedure well and, after assuring adequate hemostasis, was discharged in good condition after reviewing post aspiration breast care instructions. US/US breast cyst asp ea add IMPRESSION: 1. Uncomplicated sonographically-guided cyst aspiration of the right breast Electronically signed by: Ashley Cook DO 08/30/2024 10:56 AM EDT
--- NOTE | ~2024-08-30 | US_ITS ---
PROCEDURE: ULTRASOUND-GUIDED RIGHT BREAST CYST ASPIRATION. CLINICAL INFORMATION: Multiple simple cysts on ultrasound which are painful to the patient therefore cyst aspiration was requested. COMPARISON: Prior imaging on PACS. TECHNIQUE: The details of the procedure, as well as the risks, benefits, and alternatives to the procedure were explained to the patient in detail and all of her questions were answered, after which, written informed consent was obtained. PROCEDURE: Prior to the procedure, sonography revealed multiple simple cysts in the right breast 10,11 and 12:00.. A time-out was performed, the cysts intended for aspiration were targeted and the skin of the right breast was then prepped and draped in the usual sterile fashion. Using sonographic guidance, sterile technique, and 1% lidocaine without epinephrine for local anesthesia, simple to minimally complicated cysts were aspirated with a 22-gauge needle at 10,11 and 12:00. No clip was placed. Great tented normal appearing fluid was aspirated. No specimen or fluid was sent to pathology as everything appeared normal. No postprocedure mammogram performed. The patient tolerated the procedure well and, after assuring adequate hemostasis, was discharged in good condition after reviewing post aspiration breast care instructions. US/US breast cyst asp ea add IMPRESSION: 1. Uncomplicated sonographically-guided cyst aspiration of the right breast Electronically signed by: Ashley Cook DO 08/30/2024 10:56 AM EDT
[2024-08-30] MEDS: Lidocaine HCl 1 % 20 ML VIAL 8 ML SUBCUT (09:08)
[2024-08-30] MEDS: Sodium Bicarbonate 8.4% 50 MEQ/50 ML VIAL SUBCUT (09:09)
== END 2024-08-30 07:59 | disposition home or self-care (01) ==
LOC: HO.MAMMO 07:58
PROVIDERS: PCP Family Medicine; Visit Provider Surgery
DX: N60.11 Diffuse cystic mastopathy of right breast (principal)
CPT/HCPCS: 19000; 19001; J2003

== ENCOUNTER → 2024-08-30 08:00 | Outpatient (BNV) | payer OTHER, SELFPAY | PROVIDERS: PCP Family Medicine; Visit Provider Internal Medicine | DX: N60.11 Diffuse cystic mastopathy of right breast (principal); N64.4 Mastodynia | CPT/HCPCS: 19000; 19001; 76942 ==

== ENCOUNTER 2025-04-09 15:38 | Outpatient (REF) | payer OTHER, SELFPAY ==
[2025-04-09 19:01] LABS: Appearance Urine Clear; Glucose Urine UA Negative (Negative); PH 6.0 (5.0-9.0); Specific Gravity - Urine 1.010 (1.005-1.025)
== END 2025-04-09 15:39 | disposition home or self-care (01) ==
LOC: HO.LNP 15:38
PROVIDERS: PCP Family Medicine; Visit Provider Family Medicine
DX: Z00.00 Encounter for general adult medical examination without abnormal findings (principal); N97.9 Female infertility, unspecified; Z30.09 Encounter for other general counseling and advice on contraception; R10.9 Unspecified abdominal pain; H53.8 Other visual disturbances; G43.109 Migraine with aura, not intractable, without status migrainosus; E55.9 Vitamin D deficiency, unspecified; E03.9 Hypothyroidism, unspecified; R73.01 Impaired fasting glucose; Z87.442 Personal history of urinary calculi
CPT/HCPCS: 81003; 99212

== ENCOUNTER 2025-04-09 15:38 | Outpatient (AMB) | payer OTHER, SELFPAY ==
--- NOTE | 2025-04-09 15:42 | A.OFFPC_ITS ---
Vital Signs 04/09/25 15:48 Height 4 ft 10 in Weight 152 lb 4 oz BMI 31.8 BP 110/70 Blood Pressure Location Rt brachial Position Sitting Respiration 12 Pulse 82 Pulse Source Pulse Oximeter Temp 98.8 F Temp Source Temporal Artery Scan Pulse Oximetry (%) 97 Oxygen Delivery Method Room Air Intake Visit Reasons: Fertility Treatment Intake Note: Kristin presents in the office today to discuss getting labs done. Patient has seen [facility]. Recurring flank pain. Needs a physical. Allergies No Known Allergies Allergy (Verified 04/09/25 15:46) Medication List - Last Reconciled 04/09/25 by Luis Estrella MD PNV 119-iron fum-folic acid 29 mg iron- 1 mg tabs PO Tobacco use date assessed: 04/09/25 Dental Screening Dental Screen Date: 04/09/25 Did you have a dental visit in the last 12 months?: Yes Did you have a dental problem in the last 6 months where you did not have access to dental care?: No Was dental information given to patient?: Patient has dentist HPI Fertility Treatment HPI Details Pt presents today to f/u chronic conditions. Notes she has been following up with [facility] for fertility consult. Reports ongoing intermittent flank pain. Hx of urinary stones. Denies any blood in urine. Reports ocular migraines, blurry vision with nausea. Denies any weakness, cognition problems, or speech issues. [facility] Medical History Kidney stones History of blood clots High cholesterol Surgical History No pertinent past surgical history Family History Mother High blood pressure High cholesterol Thyroid disorder Father High blood pressure Maternal Grandmother High blood pressure Paternal Grandfather Diabetes Social History (Updated 04/09/25 @ 15:47 by Gloria Thapa CMA) Household Members: Spouse Housing: House Alcohol intake: current Alcohol intake frequency: holidays/special occasions only Patient Tobacco Use Status: Never used Tobacco e-Cigarette/Vaping Use: Never Used Second Hand Smoke Exposure: No Use of substances other than those prescribed or required for medical reasons: No service: No Current occupational status: unemployed and other Sexual orientation: Straight/Heterosexual Gender identity: Female Cognitive needs: No Hearing needs: No Vision needs: Yes Questionnaire Thrive Questionnaire Date Thrive assessed: 07/24/24 I am a: Patient What is your living situation today?: I have a steady place to live Within the past 12 months, did the food you bought not last and you didn't have the money to get more?: Never true Within the past 12 months, did you worry whether your food would run out before you got money to buy more?: Never true Do you have trouble paying for medicines?: No Do you have trouble getting transportation to medical appointments?: No Do you have trouble paying your heating and electricity bill?: I choose not to answer this question Do you have trouble taking care of your child, family member or friend?: No Do you have trouble with day-to-day activities such as bathing, preparing meals, shopping, managing finances, etc.?: No Are you currently unemployed and looking for a job?: Yes Are you interested in more education?: Yes Currently or been in a relationship where the following occur: No concerns reported THRIVE Score: 0 STONE-7 AMB Questionnaire STONE-7 Date STONE - 7 assessed: 08/09/23 Source: Developed by Drs. Dwaine Eid, Clemencia Bravo, Jaycob Lockett and colleagues, with an educational serina from [employer] Review of Systems Const Denies chills, Denies fatigue, Denies fever(s), Denies headache(s) and Denies weakness ENT Denies dizziness and Denies headache(s) Card Denies dyspnea Resp Denies cough, Denies dyspnea, Denies wheezing and Denies other (shortness of breath) Musc Denies numbness and Denies tingling Neuro Denies dizziness, Denies headache(s), Denies numbness, Denies tingling and Denies weakness Psych Denies anxiety and Denies depression Endo Denies fatigue Aller/Immun Denies wheezing Physical exam (Primary Care) Vital Signs: Last Vital Signs Temp 98.8 F 04/09/25 15:48 Pulse 82 04/09/25 15:48 Resp 12 04/09/25 15:48 BP 110/70 04/09/25 15:48 Pulse Ox 97 04/09/25 15:48 Oxygen Delivery Method Room Air 04/09/25 15:48 BMI result Body Mass Index 31.8 Tobacco/Smoking Status: Tobacco use Status Tobacco use date assessed 04/09/25 04/09/25 15:47 Patient Tobacco Use Status Never used Tobacco 04/09/25 15:47 e-Cigarette/Vaping Use Never Used 04/09/25 15:47 Thrive Assessment: Date of Thrive Assessment Date Thrive assessed 07/24/24 04/09/25 15:43 Currently or been in a relationship where the following occur: No concerns reported Const General: well developed; No acute distress Nutritional Appearance: well nourished Orientation/consciousness: patient oriented x3 HENMT Head: Yes normocephalic and Yes atraumatic Eyes General: appearance normal, both eyes and all related structures Pupils: Equal, round and reactive pupils present EOM: EOMs intact bilaterally Resp Effort & Inspection: normal respiratory effort Neuro General: patient oriented x3 and gait normal Cranial nerves: Yes Equal, round and reactive pupils present Psych Affect: normal affect Coding Level of Care Code Est Pt Level 4 (51668) Diagnoses Family planning Z30.09 Infertility, female N97.9 Flank pain R10.9 Blurry vision H53.8 Ocular migraine G43.109 Assessment & Plan Assessment & Plan (1) Family planning: Code(s): Z30.09 - Encounter for other general counseling and advice on contraception Category: Social Hx Plan: Patient was referred to [facility] Continue follow-up with [facility] as recommended Checking labs including prolactin and cortisol as per their request (2) Infertility, female: Code(s): N97.9 - Female infertility, unspecified Category: Medical Plan: As above (3) Flank pain: Code(s): R10.9 - Unspecified abdominal pain Category: Medical Plan: Intermittent left upper abdominal and flank pain in patient with a history of urinary stones. Currently has no discomfort. Denies current blood in urine Requested automated urine but this was sent to the lab. She is coming back for follow-up of lab work in the next few weeks. Patient insists on referral to Urology. Referred (4) Blurry vision: Code(s): H53.8 - Other visual disturbances Category: Medical Plan: Intermittent blurry vision with nausea. Denies any weakness, speech or cognition problems associated with this. 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 If not improving in a few minutes, she will seek medical attention. Orders: Orders Lipid Panel Today Z00.00 - Encounter for general adult medical examination without abnormal findings UA CC w/rflx Micro + Cult Today Z00.00 - Encounter for general adult medical examination without abnormal findings DHEA Sulfate Today N97.9 - Female infertility, unspecified Vitamin D 25-OH Total Today E55.9 - Vitamin D deficiency, unspecified, Z00.00 - Encounter for general adult medical examination without abnormal findings Thyroid Stimulating Hormone Today E03.9 - Hypothyroidism, unspecified, Z00.00 - Encounter for general adult medical examination without abnormal findings Hemoglobin A1c Today R73.01 - Impaired fasting glucose, Z00.00 - Encounter for general adult medical examination without abnormal findings Insulin Today Z00.00 - Encounter for general adult medical examination without abnormal findings IRON PROFILE Today Z00.00 - Encounter for general adult medical examination without abnormal findings Erythrocyte Sedimentation Rate Today H53.8 - Other visual disturbances AMB Urinalysis Automated Today R10.9 - Unspecified abdominal pain, Z13.9 - Encounter for screening, unspecified Comprehensive [place]. Panel Fast Today Z00.00 - Encounter for general adult medical examination without abnormal findings Complete Blood Count Auto Diff Today Z00.00 - Encounter for general adult medical examination without abnormal findings Microalbumin, Random (w Creat) Today I10 - Essential (primary) hypertension Cortisol Random Today N97.9 - Female infertility, unspecified Free T4 (Free Thyroxine) Today E03.9 - Hypothyroidism, unspecified, Z00.00 - Encounter for general adult medical examination without abnormal findings Triiodothyronine T3 Total Today E03.9 - Hypothyroidism, unspecified, Z00.00 - Encounter for general adult medical examination without abnormal findings Ferritin Today Z00.00 - Encounter for general adult medical examination without abnormal findings CRP High Sensitivity Today H53.8 - Other visual disturbances Referrals Ophthalmology Referral H53.8 - Other visual disturbances Urology Referral R10.9 - Unspecified abdominal pain, Z87.442 - Personal history of urinary calculi
[2025-04-09 15:48] VITALS: BP 110/70; PULSE 82; RESP 12; TEMP 37.1; O2SAT 97; BMI 31.8
--- OUTSIDE RECORDS SUMMARY | 2025-04-09 18:18 | XMS_ITS | Clinical Summary ---
Author Organization [facility] Address [address] [place], [place] [address] Phone Care Team Providers Care Customer Marketing Assistant Name Role Phone Pcp, Unknown Primary Care Provider Unavailabl e Social History Tobacco Use Types Packs/Day Years Used Date Smoking Tobacco: Never Assessed Education Answer Date Recorded Are you interested in more education? Not on cheryl e 08/16/2024 Are you concerned about learning? Not on file 08/16/2024 No 08/16/2024 No 08/16/2024 Digital Access Answer Date Recorded No 08/16/2024 No 08/16/2024 Reliable internet access at home? Not on file 08/16/2024 Device with a working camera? Not on file Comments Unknown Sex and Gender Information Value Date Recorded Sex Assigned at Not on file Legal Sex Female 8:12 AM EDT Gender Identity Not on file Sexual Orientation Not on file Plan of Treatment Not on file Medical Devices Not on file Insurance [facility] [place] [address] [place] [address] [place] [address] [place] [address] [place] [address] [employer] [facility] [employer] [facility] [employer] DIRECT Care Teams Customer Marketing Assistant Relationship Specialty Start Date End Date Pcp, Unknown PCP - General 08/15/24 Additional Source Comments The information contained in this document represents components of the legal health record. It is not the complete legal health record.[facility]
== END 2025-04-09 16:18 | disposition home or self-care (01) ==
LOC: HO.HMCFM 15:39
PROVIDERS: PCP Family Medicine; Visit Provider Family Medicine
DX: Z30.09 Encounter for other general counseling and advice on contraception (principal); N97.9 Female infertility, unspecified; R10.9 Unspecified abdominal pain; H53.8 Other visual disturbances; G43.109 Migraine with aura, not intractable, without status migrainosus

== ENCOUNTER 2025-04-18 07:45 | Outpatient (REF) | payer OTHER, SELFPAY ==
--- OUTSIDE RECORDS SUMMARY | 2025-04-18 07:48 | XMS_ITS | Clinical Summary ---
Author Organization [facility] Address [address] [place], [place] [id number] Phone Care Team Providers Care Game Moderator Name Role Phone Pcp, Unknown Primary Care [...] file Medical Devices Not on file Insurance [facility] [place] [address] [address] [place] [address] [place] [address] [place] [address] [employer] [facility] [facility] [employer] Care Teams Game Moderator Relationship Specialty Start Date End Date Pcp, Unknown PCP - General 08/15/24 Additional Source Comments The information contained in this document represents components of the legal health record. It is not the complete legal health record.[facility]
[2025-04-18 11:29] LABS: MANUAL DIFF FLAG NO
[2025-04-18 11:38] LABS: Hematocrit 41.4 % (37.0-47.0); Hemoglobin 13.4 g/dl (12.0-16.0); Imm Gran Abs Auto 0.01 X10*3/uL (0.00-0.03); Imm Gran Pct Auto 0.2 % (0.0-0.4); Lymphocytes Absolute Auto 1.7 X10*3/uL (1.2-4.9); Mean Corpuscular HGB Conc 32.4 g/dl (31.0-35.0); Mean Corpuscular Hemoglobin 29.7 pg (27.0-33.0); Mean Corpuscular Volume 91.8 fL (80.0-98.0); NRBC Abs Auto 0.000 X10*3/uL (0.0-0.012); NRBC Pct Auto 0.0 /100WBC (0.0-0.2); Platelet Count 217 X10*3/uL (160-400); Red Blood Count 4.51 X10*6/uL (4.20-5.50); White Blood Count 4.9 X10*3/uL (4.8-10.8)
[2025-04-18 12:23] LABS: Alanine Aminotransferase 17 U/L (0-31); Albumin Level 4.5 g/dL (3.5-5.0); Alkaline Phosphatase 57 U/L (39-117); Anion Gap 11 (12-20); Aspartate Amino Transferase 19 U/L (5-31); Blood Urea Nitrogen 12 mg/dL (9-16); Calcium 9.0 mg/dL (8.4-10.2); Carbon Dioxide 25 mmol/L (22-29); Chloride 107 mmol/L (96-108); Cholesterol 229 mg/dL (<200); Estimated Glomerular Filt Rate > 60; HDL Cholesterol 56 mg/dL (>40); Iron 96 mcg/dL (30-160); Percent Iron Saturation 38 % (15-50); Potassium 3.7 mmol/L (3.3-5.1); Sodium 139 mmol/L (135-145); Total Iron Binding Capacity 250 mcg/dL (228-428); Total Protein 6.8 g/dL (6.5-8.0); Triglycerides 73 mg/dL (<150); Unsaturated Iron Binding 154 ug/dL
[2025-04-18 12:29] LABS: Ferritin 97 ng/mL (10-122); Free T4 (Free Thyroxine) 1.18 ng/dL (0.71-1.85); Thyroid Stimulating Hormone 2.48 uIU/mL (0.32-4.0)
== END 2025-04-18 07:46 | disposition home or self-care (01) ==
LOC: HO.WFDLDS 07:45
PROVIDERS: Visit Provider Family Medicine
DX: Z00.00 Encounter for general adult medical examination without abnormal findings (principal); E03.9 Hypothyroidism, unspecified; N97.9 Female infertility, unspecified; E55.9 Vitamin D deficiency, unspecified; R73.01 Impaired fasting glucose; H53.8 Other visual disturbances
CPT/HCPCS: 36415; 80053; 80061; 82306; 82533; 82627; 82728; 83036; 83525; 83540; 84439; 84443; 84480; 85025; 85652; 86141

== ENCOUNTER 2025-05-06 11:11 | Outpatient (AMB) | payer OTHER, SELFPAY ==
[2025-05-06 11:16] VITALS: BP 118/82; PULSE 81; TEMP 36.7; O2SAT 96; BMI 27.4
--- NOTE | 2025-05-06 11:16 | MHC.PC.OV ---
Vital Signs 05/06/25 11:16 Height 4 ft 10 in Weight 131 lb 2 oz BMI 27.4 BP 118/82 Blood Pressure Location Lt brachial Position Sitting Pulse 81 Pulse Source Pulse Oximeter Temp 98.1 F Temp Source Temporal Artery Scan Pulse Oximetry (%) 96 Oxygen Delivery Method Room Air Intake Visit Reasons: f/u labs Allergies No Known Allergies Allergy (Verified 05/06/25 11:16) Tobacco use date assessed: 05/06/25 Dental Screening Dental Screen Date: 05/06/25 Did you have a dental visit in the last 12 months?: Yes Did you have a dental problem in the last 6 months where you did not have access to dental care?: No Was dental information given to patient?: Patient has dentist HPI f/u labs HPI Details 40 y/o female presents to f/u labs. Labs drawn 04/18/25. Reviewed labs with pt. Triglycerides 73. TC 229. LDL 159. HDL 56. Vitamin D 65.7. TSH 2.48 uIU/mL. Pt had intermittent L upper abdominal and flank pain with hx of urinary stones. Recent urinalysis looks fine. Reports ongoing ocular migraines. [facility] Medical History Kidney stones History of blood clots High cholesterol Surgical History No pertinent past surgical history Family History Mother High blood pressure High cholesterol Thyroid disorder Father High blood pressure Maternal Grandmother High blood pressure Paternal Grandfather Diabetes Social History Household Members: Spouse Housing: House Alcohol intake: current Alcohol intake frequency: holidays/special occasions only Patient Tobacco Use Status: Never used Tobacco e-Cigarette/Vaping Use: Never Used Second Hand Smoke Exposure: No service: No Current occupational status: unemployed and other Sexual orientation: Straight/Heterosexual Gender identity: Female Cognitive needs: No Hearing needs: No Vision needs: Yes Questionnaire PHQ-9 Over the last 2 weeks, how often have you been bothered by any of the following problems? 1. Little interest or pleasure in doing things: not at all 2. Feeling down, depressed, or hopeless: not at all 3. Trouble falling or staying asleep, or sleeping too much: not at all 4. Feeling tired or having little energy: not at all 5. Poor appetite or overeating: not at all 6. Feeling bad about yourself - or that you are a failure or have let yourself or your family down: not at all 7. Trouble concentrating on things, such as reading the newspaper or watching television: not at all 8. Moving or speaking so slowly that other people could have noticed. Or the opposite - being so fidgety or restless that you have been moving around a lot more than usual: not at all 9. Thoughts that you would be better off or of hurting yourself in some way: not at all Total score: 0 Source: Developed by Drs. Dwaine Eid, Clemencia Bravo, Jaycob Lockett and colleagues, with an educational serina from [employer]. Thrive Questionnaire Date Thrive assessed: 07/24/24 I am a: Patient What is your living situation today?: I have a steady place to live Within the past 12 months, did the food you bought not last and you didn't have the money to get more?: Never true Within the past 12 months, did you worry whether your food would run out before you got money to buy more?: Never true Do you have trouble paying for medicines?: No Do you have trouble getting transportation to medical appointments?: No Do you have trouble paying your heating and electricity bill?: I choose not to answer this question Do you have trouble taking care of your child, family member or friend?: No Do you have trouble with day-to-day activities such as bathing, preparing meals, shopping, managing finances, etc.?: No Are you currently unemployed and looking for a job?: Yes Are you interested in more education?: Yes Currently or been in a relationship where the following occur: No concerns reported THRIVE Score: 0 AUDIT C Alcohol Use Questionnaire (AUDIT-C) 1. How often do you have a drink containing alcohol?: Never 3. How often do you have six or more drinks on one occasion?: Never Total Score: 0 STONE-7 AMB Questionnaire STONE-7 Date STONE - 7 assessed: 07/30/24 Feeling nervous, anxious, or on edge: 0 = Not at all Not being able to stop or control worryin = Not at all Worrying too much about different things: 0 = Not at all Trouble relaxin = Not at all Being so restless that it is hard to sit still: 0 = Not at all Becoming easily annoyed or irritable: 0 = Not at all Feeling afraid as if something awful might happen: 0 = Not at all Total STONE-7 score (0-4 normal; 5-9 mild; 10-14 moderate; 15-21 severe): 0 Source: Developed by Drs. Dwaine Eid, Clemencia Bravo, Jaycob Lockett and colleagues, with an educational serina from [employer]. Review of Systems Const Denies chills, Denies fatigue, Denies fever(s), Denies headache(s) and Denies weakness ENT Denies dizziness and Denies headache(s) Card Denies dyspnea Resp Denies cough, Denies dyspnea, Denies wheezing and Denies other (shortness of breath) Musc Denies numbness and Denies tingling Neuro Denies dizziness, Denies headache(s), Denies numbness, Denies tingling and Denies weakness Psych Denies anxiety and Denies depression Endo Denies fatigue Aller/Immun Denies wheezing Physical exam (Primary Care) Vital Signs: Last Vital Signs Temp 98.1 F 05/06/25 11:16 Pulse 81 05/06/25 11:16 BP 118/82 05/06/25 11:16 Pulse Ox 96 05/06/25 11:16 Oxygen Delivery Method Room Air 05/06/25 11:16 BMI result Body Mass Index 27.4 Tobacco/Smoking Status: Tobacco use Status Tobacco use date assessed 05/06/25 05/06/25 11:19 Patient Tobacco Use Status Never used Tobacco 05/06/25 11:19 e-Cigarette/Vaping Use Never Used 05/06/25 11:19 PHQ-9: PHQ-9 Score PHQ-9: Total score 0 05/06/25 12:14 Thrive Assessment: Date of Thrive Assessment Date Thrive assessed 07/24/24 05/06/25 11:19 Currently or been in a relationship where the following occur: No concerns reported Const General: well developed; No acute distress Nutritional Appearance: well nourished Orientation/consciousness: patient oriented x3 HENMT Head: Yes normocephalic and Yes atraumatic Eyes General: appearance normal, both eyes and all related structures Pupils: Equal, round and reactive pupils present EOM: EOMs intact bilaterally Resp Effort & Inspection: normal respiratory effort Neuro General: patient oriented x3 and gait normal Cranial nerves: Yes Equal, round and reactive pupils present Psych Affect: normal affect Coding Level of Care Code Est Pt Level 3 (89448) Diagnoses Hypercholesterolemia E78.00 Ocular migraine G43.109 Family planning Z30.09 Assessment & Plan Assessment & Plan (1) Hypercholesterolemia: Code(s): E78.00 - Pure hypercholesterolemia, unspecified Category: Medical Plan: Patient continues to work on lifestyle changes and she has made significant improvements in her LDL cholesterol. However, LDL cholesterol still significantly above goal. Continue to work at diet low in saturated fats and cholesterol. Continue to work on exercise and weight loss. Patient is still planning to get and working with infertility specialist. I do not recommend a statin medication at this time. She will let know if her situation changes to begin statin as soon as possible. (2) Ocular migraine: Code(s): G43.109 - Migraine with aura, not intractable, without status migrainosus Category: Medical Plan: She can try Imitrex. However, patient is planning on IVF treatments in the upcoming month. Recommend she discontinue use of this medication once they have begun IVF. Patient understands (3) Family planning: Code(s): Z30.09 - Encounter for other general counseling and advice on contraception Category: Social Hx Plan: Continue vitamin Follow-up with [facility] Orders: Orders Vitamin B12 and Folate Today E53.8 - Deficiency of other specified B group vitamins, N97.9 - Female infertility, unspecified Prolactin Today N97.9 - Female infertility, unspecified Medications: New sumatriptan succinate do not exceed 1 dose per 24 hrs 25 mg PO DAILY PRN 3 tabs 0RF migraine headache 28 days
--- OUTSIDE RECORDS SUMMARY | 2025-05-06 14:39 | XMS_ITS | Clinical Summary ---
Author Organization [facility] Address [address] [place], [place] [address] Phone Care Team Providers Care Job Coach Name Role Phone Pcp, Unknown Primary Care [...] file Medical Devices Not on file Insurance [facility] [place] [address] [place] [address] [place] [address] [place] [address] [place] [address] [place] [address] [employer] [facility] [employer] [facility] [employer] Care Teams Job Coach Relationship Specialty Start Date End Date Pcp, Unknown PCP - General 08/15/24 Additional Source Comments The information contained in this document represents components of the legal health record. It is not the complete legal health record.[facility]
== END 2025-05-06 12:26 | disposition home or self-care (01) ==
LOC: HO.HMCFM 11:12
PROVIDERS: PCP Family Medicine; Visit Provider Family Medicine
DX: E78.00 Pure hypercholesterolemia, unspecified (principal); G43.109 Migraine with aura, not intractable, without status migrainosus; Z30.09 Encounter for other general counseling and advice on contraception

== ENCOUNTER → 2025-05-06 11:11 | Outpatient (BNVA) | payer OTHER, SELFPAY | PROVIDERS: PCP Family Medicine; Visit Provider Family Medicine | DX: R10.12 Left upper quadrant pain (principal); R10.A2 Flank pain, left side; E78.00 Pure hypercholesterolemia, unspecified; G43.109 Migraine with aura, not intractable, without status migrainosus; N97.9 Female infertility, unspecified; E53.8 Deficiency of other specified B group vitamins; Z30.09 Encounter for other general counseling and advice on contraception; Z87.442 Personal history of urinary calculi | CPT/HCPCS: 99212 ==

== ENCOUNTER 2025-05-11 10:42 | Outpatient (REF) | payer OTHER, SELFPAY ==
--- OUTSIDE RECORDS SUMMARY | 2025-05-11 10:45 | XMS_ITS | Clinical Summary ---
Author Organization [facility] Address [address] [place], [place] [id number] Phone Care Team Providers Care Military Pilot Name Role Phone Pcp, Unknown Primary Care [...] file Medical Devices Not on file Insurance [facility] [place] [address] [place] [place] [address] [place] [place] [address] [employer] [facility] [employer] [facility] [employer] DIRECT Care Teams Military Pilot Relationship Specialty Start Date End Date Pcp, Unknown PCP - General 08/15/24 Additional Source Comments The information contained in this document represents components of the legal health record. It is not the complete legal health record.[facility]
[2025-05-11 13:02] LABS: Folate 14.2 ng/mL (> or = 4.0); Vitamin B12 740 pg/mL (200-900)
== END 2025-05-11 10:43 | disposition home or self-care (01) ==
LOC: HO.LAB 10:42
PROVIDERS: PCP Family Medicine; Visit Provider Family Medicine
DX: E53.8 Deficiency of other specified B group vitamins (principal); N97.9 Female infertility, unspecified
CPT/HCPCS: 36415; 82607; 82746; 84146

== ENCOUNTER 2025-05-24 11:38 | Outpatient (AMB) | payer OTHER, SELFPAY ==
--- NOTE | 2025-05-24 12:08 | A.OFFVIS_ITS ---
Intake Visit Reasons: history of kidney stones(set) Intake Note: Reason for Visit: New Patient History Of Kidney Stones Urology Meds: None Blood Thinners: None Antibiotic Allergy: None Labs: BUN: 12 Creatinine- 0.66 (04/18/2025) Imaging: None Last PVR: None Family History: Prostate Cancer? No Bladder Cancer? No Kidney Cancer? No Allergies No Known Allergies Allergy (Verified 05/06/25 11:16) HPI Comments Details: Kristin is a pleasant female. She is a patient of Dr. Estrella. She is seen for the following urologic conditions - nephrolithiasis Recurrent nephrolithiasis Prior interventions No recent imaging Discussed dietary triggers Start B6 Three-month follow-up imaging and 24 hour Uro risk with nurse-practitioner [facility] Medical History (Updated 05/24/25 @ 12:53 by Cong Schuster MD) Kidney stones History of blood clots High cholesterol Surgical History No pertinent past surgical history Family History Mother High blood pressure High cholesterol Thyroid disorder Father High blood pressure Maternal Grandmother High blood pressure Paternal Grandfather Diabetes Social History Household Members: Spouse Housing: House Alcohol intake: current Alcohol intake frequency: holidays/special occasions only Patient Tobacco Use Status: Never used Tobacco e-Cigarette/Vaping Use: Never Used Second Hand Smoke Exposure: No service: No Current occupational status: unemployed and other Sexual orientation: Straight/Heterosexual Gender identity: Female Cognitive needs: No Hearing needs: No Vision needs: Yes Review of Systems Const Denies chills and Denies fever(s) Card Reports no additional complaints and Denies syncope Resp Denies cough GI Denies abdominal pain and Denies heartburn Reports as per HPI and Denies change in libido Neuro Denies syncope Psych Denies change in libido Endo Denies change in libido Physical Exam Const General: cooperative, healthy appearing, comfortable and no acute distress Orientation/consciousness: patient oriented x3 HEENT Face and sinus: Yes normal facial exam Mouth: moist mucous membranes Neck Neck: Yes normal visual inspection, Yes full ROM and Yes trachea midline Chest Chest palpation & inspection: normal inspection of the chest Resp Effort & Inspection: normal respiratory effort, able to speak in complete sentences and no respiratory distress GI Inspection: Yes normal to inspection Back/Spine/Pelvis Cervical Spine: normal cervical lordosis Thoracic/Lumbar Spine: thoracic and lumbar spine normal to inspection Skin General skin exam: no rashes or lesions noted Neuro General: patient oriented x3, gait normal, tone normal and moves all extremities Extrem General: Yes normal to inspection and Yes capillary refill normal Assessment & Plan Assessment & Plan (1) Kidney stones: Code(s): N20.0 - Calculus of kidney Category: Medical Plan Start B6 Follow-up imaging and 24 hour urorisk Orders: Orders URORISK 05/24/25 N20.0 - Calculus of kidney CT kidney stone 05/24/25 N20.0 - Calculus of kidney Medications: New pyridoxine (vitamin B6) 50 mg PO DAILY 90 tabs 1RF 90 days N20.0 - Calculus of kidney Patient Instructions: This note is constructed using voice recognition software. While every effort has been made to ensure accuracy senior data warehouse developer errors may have been included. Imaging studies, laboratory and physical exam results were discussed and reviewed in detail. No major barriers to patient understanding were identified. An opportunity to ask questions regarding the treatment plan was provided. All questions were answered. The patient expressed understanding and agreement with the above treatment plan. The patient is aware they should contact our office by phone for worsening of their current condition or the appearance of new urologic symptoms. Compliance is encouraged with any medications and followup testing that is ordered. It is a privilege to participate in the urologic care of your patient. If you have any questions or concerns regarding treatment for the above conditions, or other urologic issues, please do not hesitate to contact me. The office telephone contact is [phone]. Sincerely, Dr Cong Schuster MD, [facility] - Urology Compassionate Specialist Care for the Genitourinary System Coding Level of Care Code New Pt Level 4 (76805) Diagnoses Kidney stones N20.0
--- OUTSIDE RECORDS SUMMARY | 2025-05-24 13:45 | XMS_ITS | Clinical Summary ---
Author Organization [facility] Address [address] [place], [place] [id number] Phone Care Team Providers Care Rivet Spinner Name Role Phone Pcp, Unknown Primary Care [...] file Medical Devices Not on file Insurance [facility] [place] [address] [place] [address] [employer] [place] [address] [place] [address] [place] [address] [place] [address] [employer] DIRECT [facility] [employer] DIRECT [facility] [employer] DIRECT Care Teams Rivet Spinner Relationship Specialty Start Date End Date Pcp, Unknown PCP - General 08/15/24 Additional Source Comments The information contained in this document represents components of the legal health record. It is not the complete legal health record.[facility]
== END 2025-05-24 13:02 | disposition home or self-care (01) ==
LOC: HO.HUSH 11:39
PROVIDERS: PCP Family Medicine; Visit Provider Urology
DX: N20.0 Calculus of kidney (principal)
CPT/HCPCS: 99204

== ENCOUNTER → 2025-05-24 11:38 | Outpatient (BNVA) | payer OTHER, SELFPAY | PROVIDERS: PCP Family Medicine; Visit Provider Urology | DX: N20.0 Calculus of kidney (principal) | CPT/HCPCS: 99202 ==

== ENCOUNTER 2025-05-25 09:27 | Outpatient (REF) | payer OTHER, SELFPAY ==
--- OUTSIDE RECORDS SUMMARY | 2025-05-25 09:30 | XMS_ITS | Clinical Summary ---
Author Organization [facility] Address [address] [place], [place] [id number] Phone Care Team Providers Care Detective Chief Name Role Phone Pcp, Unknown Primary Care [...] file Medical Devices Not on file Insurance [facility] [address] [place] [address] [employer] [address] [place] [address] [employer] [address] [place] [address] [employer] DIRECT [facility] [employer] DIRECT [facility] [employer] DIRECT Care Teams Detective Chief Relationship Specialty Start Date End Date Pcp, Unknown PCP - General 08/15/24 Additional Source Comments The information contained in this document represents components of the legal health record. It is not the complete legal health record.[facility]
== END 2025-05-25 09:28 | disposition home or self-care (01) ==
LOC: HO.LAB 09:27
PROVIDERS: Absent Provider Urology; PCP Family Medicine; Visit Provider Family Medicine
DX: N97.9 Female infertility, unspecified (principal)
CPT/HCPCS: 36415; 83090